=== PATIENT | female | born 1945 | race Asian ===

== ENCOUNTER 2023-01-02 10:15 | Outpatient (REF) | payer MEDICARE, MEDICAID, SELFPAY ==
[2023-01-02 13:14] LABS: Cholesterol 180 mg/dL; HDL Cholesterol 67 mg/dL; LDL Cholesterol Calculated 96 mg/dl; Triglycerides 85 mg/dL
[2023-01-02 13:30] LABS: Alanine Aminotransferase 17 U/L (0-31); Albumin Level 4.5 g/dL (3.5-5.0); Alkaline Phosphatase 90 U/L (39-117); Anion Gap 11 (12-20); Aspartate Amino Transferase 25 U/L (5-31); Bilirubin Total 0.7 mg/dL (0.0-1.0); Blood Urea Nitrogen 15 mg/dL (9-16); Calcium 10.1 mg/dL (8.4-10.2); Carbon Dioxide 30 mmol/L (22-29); Chloride 103 mmol/L (96-108); Estimated Glomerular Filt Rate > 60; Glucose Random 83 mg/dL (60-115); Sodium 140 mmol/L (135-145); TSH reflex Free T4 1.84 uIU/mL (0.32-4.0); Total Protein 7.8 g/dL (6.5-8.0)
[2023-01-02 14:54] LABS: Reflex LDLD? No
== END 2023-01-02 10:16 | disposition home or self-care (01) ==
LOC: HO.HHCL 10:15
PROVIDERS: Visit Provider Family Medicine
DX: R10.32 Left lower quadrant pain (principal); E78.5 Hyperlipidemia, unspecified; M85.80 Other specified disorders of bone density and structure, unspecified site; K59.00 Constipation, unspecified
CPT/HCPCS: 36415; 80053; 80061; 84443

== ENCOUNTER 2023-01-02 10:35 | Outpatient (REF) | payer MEDICARE, MEDICAID, SELFPAY ==
--- NOTE | ~2023-01-02 | XR_ITS ---
EXAMINATION: XR FINGER, RIGHT XR HAND, RIGHT CLINICAL INFORMATION: Finger pain, especially 4th digit for 6 months. COMPARISON: None. TECHNIQUE: Right finger 3 views. Right hand 3 views. FINDINGS: Right hand and right fingers: There is loss of PIP and DIP joint space all digits, worse DIP joint 4th and 5th digits. There is periarticular spurring and bony erosive changes and mild flexion deformity DIP joint 4th digit. Minimal loss of PIP joint space is also visualized involving the 2nd, 3rd and 4th digits. The carpometacarpal and intercarpal joint spaces are preserved. No acute fracture seen. XR/XR finger RT min 2V IMPRESSION: Degenerative osteoarthritic changes. Severe degenerative arthritic changes PIP and DIP joints worse in the 4th and 5th digits. There is mild flexion deformity DIP joint 4th digit. No acute fracture seen.
--- NOTE | ~2023-01-02 | XR_ITS ---
EXAMINATION: XR FINGER, RIGHT XR HAND, RIGHT CLINICAL INFORMATION: Finger pain, especially 4th digit for 6 months. COMPARISON: None. TECHNIQUE: Right finger 3 views. Right hand 3 views. FINDINGS: Right hand and right fingers: There is loss of PIP and DIP joint space all digits, worse DIP joint 4th and 5th digits. There is periarticular spurring and bony erosive changes and mild flexion deformity DIP joint 4th digit. Minimal loss of PIP joint space is also visualized involving the 2nd, 3rd and 4th digits. The carpometacarpal and intercarpal joint spaces are preserved. No acute fracture seen. XR/XR hand RT min 3V IMPRESSION: Degenerative osteoarthritic changes. Severe degenerative arthritic changes PIP and DIP joints worse in the 4th and 5th digits. There is mild flexion deformity DIP joint 4th digit. No acute fracture seen.
== END 2023-01-02 10:36 | disposition home or self-care (01) ==
LOC: HO.HHCX 10:35
PROVIDERS: Visit Provider Family Medicine
DX: M79.644 Pain in right finger(s) (principal)
CPT/HCPCS: 73130; 73140

== ENCOUNTER 2023-01-03 14:16 | Outpatient (REF) | payer MEDICARE, MEDICAID, SELFPAY | END 2023-01-03 14:17 | disposition home or self-care (01) | LOC: HO.HHCLNP 14:16 | PROVIDERS: Visit Provider Family Medicine | DX: R10.32 Left lower quadrant pain (principal) | CPT/HCPCS: 87338 ==

== ENCOUNTER 2023-02-27 09:17 | Outpatient (AMB) | payer MEDICARE, MEDICAID, SELFPAY ==
--- NOTE | 2023-02-27 09:25 | A.OFFVIS_ITS ---
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 Patient reports on and off numbness for a year which causes her a lot of pain. She states her numbness is worse at night, it wakes her up at night. 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 The patient reports she has numbness in the right index, ring, and little digits. She states the numbness has been present for a year, which causes her a lot of pain. She claims to have an increased numbness at night. She states the numbness will wake her up at night. She reports numbness in the index, ring, and little digits occasionally at night. She denies taking Tylenol or Ibuprofen. She states she is starting to have pain in the left hand. She presents in the office today with her . [facility] Social History (Updated 02/27/23 @ 09:29 by Ezio Zapata) Alcohol intake: never Patient Tobacco Use Status: Never used Tobacco Current occupational status: retired Current occupation: right hand dominant Review of Systems Const All systems reviewed & are unremarkable except as noted in HPI and below Physical Exam Vital Signs: BMI result Body Mass Index 21.5 Const General: cooperative and no acute distress Orientation/consciousness: patient oriented x3 Resp Effort & Inspection: normal respiratory effort and able to speak in complete sentences Cardio Peripheral pulses: Peripheral pulses 2+ throughout Skin General skin exam: no rashes or lesions noted Neuro General: patient oriented x3 Extrem Other: Right hand: Deformity noted at the DIP of the index, ring, and little digits with slight tenderness to palpation. No ecchymosis, erythema, or edema. Able to perform full finger flexion, extension, abduction, adduction, finger cross, okay sign, and thumbs up without deficit. Able to make a closed fist. Numbness and tingling along the ulnar nerve distribution of the index, ring, and little digits.. Capillary refill is brisk. Radial pulse intact. Assessment & Plan Assessment & Plan (1) Rheumatoid arthritis: Code(s): M06.9 - Rheumatoid arthritis, unspecified Qualifiers: Laterality: right Rheumatoid arthritis location: hand Rheumatoid factor presence: unspecified presence Qualified Code(s): M06.9 - Rheumatoid arthritis, unspecified (2) Carpal tunnel syndrome: Code(s): G56.00 - Carpal tunnel syndrome, unspecified upper limb Qualifiers: Laterality: right Qualified Code(s): G56.01 - Carpal tunnel syndrome, right upper limb Plan Ms. Munoz is a 77-year-old female who presents in the office today, as a new patient, for an evaluation of right hand pain. The patient reports she has numbness in the right index, ring, and little digits. She states the numbness has been present for a year, which causes her a lot of pain. She claims to have an increased numbness at night. She states the numbness will wake her up at night. She reports numbness in the index, ring, and little digits occasionally at night. She denies taking Tylenol or Ibuprofen. She states she is starting to have pain in the left hand. She presents in the office today with her . I discussed the role of cortisone injections in the office. We have agreed to defer at this time due to her pain not being severe. I recommended the patient to take OTC tylenol and ibuprofen. Should the OTC medications not give her relief she can call the office to schedule a cortisone injection in the DIP specifically the ring giner. This would need to be booked with Dr. Fitzgerald using the Fluro[employer]. I will send a referral to Rheumatology for further evaluation of possible rheumatoid arthritis. I will also place a referral for an EMG study for further evaluation of the numbness in the digits. Follow up will be after the EMG is obtained, or sooner if needed. X-rays of the right hand which were obtained while in the office today and were reviewed by me, Jenelle Mcgill PA-C, revealed arthritis located at the DIP of the index, ring, and little digits with possible rheumatoid arthritis. Also with pencil and cup deformity. Orders: Orders XR hand RT min 3V Today M79.643 - Pain in unspecified hand NE electromyogram (EMG) Today G56.00 - Carpal tunnel syndrome, unspecified upper limb Referrals Rheumatology Referral M06.9 - Rheumatoid arthritis, unspecified Patient Instructions: Scribed for Jenelle Mcgill PA-C by Nereida Bach medical assistant dermatology, on 02/27/2023 at 9:15 am, EST. Coding Level of Care Code New Pt Level 4 (96723) Diagnoses Rheumatoid arthritis involving right hand, unspecified whether rheumatoid factor present M06.9 Laterality: right Rheumatoid arthritis location: hand Rheumatoid factor presence: unspecified presence Carpal tunnel syndrome of right wrist G56.01 Laterality: right
[2023-02-27 09:29] VITALS: BMI 21.5
== END 2023-02-27 09:57 | disposition home or self-care (01) ==
LOC: HO.HOS 09:17
PROVIDERS: PCP Family Medicine; Visit Provider Physician Assistant
DX: G56.01 Carpal tunnel syndrome, right upper limb (principal); M06.9 Rheumatoid arthritis, unspecified
CPT/HCPCS: 99204

== ENCOUNTER 2023-02-27 11:21 | Outpatient (REF) | payer MEDICARE, MEDICAID, SELFPAY ==
--- NOTE | ~2023-02-27 | XR_ITS ---
EXAMINATION: XR HAND, RIGHT CLINICAL INFORMATION: Pain in unspecified hand. COMPARISON: 01/02/2023 TECHNIQUE: Right hand 4 views. FINDINGS: Advanced degenerative changes with joint space narrowing, periarticular spurring, bony erosive changes are severe in the 4th DIP joint with flexion deformity. Moderate degenerative changes with joint space narrowing in the remainder of the DIP joints. Minimal joint space narrowing 2nd, 3rd and 4th PIP joints. Mild degenerative changes 1st carpometacarpal joint with joint space narrowing and hypertrophic change. XR/XR hand RT min 3V IMPRESSION: 1. Advanced degenerative changes are severe in the 4th DIP joint and moderately severe in the 5th DIP joint. 2. No displaced fracture. Recommend follow up imaging in 10-14 days if fracture is suspected. 3. Severe degenerative arthritic changes PIP and DIP joints worse in the 4th and 5th digits. There is mild flexion deformity DIP joint 4th digit. No acute fracture seen. 4. Recommend follow up imaging in 10-14 days if fracture is suspected.
== END 2023-02-27 11:22 | disposition home or self-care (01) ==
LOC: HO.HOSX 11:21
PROVIDERS: Visit Provider Physician Assistant
DX: M79.641 Pain in right hand (principal); M06.9 Rheumatoid arthritis, unspecified; G56.01 Carpal tunnel syndrome, right upper limb
CPT/HCPCS: 73130

== ENCOUNTER 2023-04-12 10:31 | Outpatient (REF) | payer MEDICARE, MEDICAID, SELFPAY ==
--- NOTE | ~2023-04-12 | MM_ITS ---
EXAMINATION: BONE DENSITOMETRY CLINICAL INDICATION: Screening for osteoporosis. COMPARISON: This is the patient's baseline examination. TECHNIQUE: Using a Iqua DXA System (software version: 13.1) manufactured by [employer], dual-energy x-ray absorptiometry was performed of the lumbar spine and left hip. The images are of good technical quality. Summary results are attached. FINDINGS: LEFT FEMUR, NECK: BMD 0.739 g/cm2, Z-score 0.1, T-score -2.2, osteopenia. LEFT FEMUR, TOTAL: BMD 0.796 g/cm2, Z-score 0.4, T-score -1.7, osteopenia. AP SPINE L1-L4: BMD 0.901 g/cm2, Z-score -0.3, T-score -2.3, osteopenia. IDENTIFIED RISK FACTORS: Menopause. HISTORY OF FRACTURE: None listed. MEDICATIONS: Calcium, vitamin D. MM/XR DEXA axial skeleton IMPRESSION: 1. DIAGNOSIS: Osteopenia based on the lowest T-score value of -2.3 in the lumbar spine applying World Health Organization criteria. 2. 10-YEAR FRACTURE RISK PREDICTION, FRAX: Major osteoporotic fracture (clinical spine, forearm, hip or shoulder) 8.4%. Hip fracture 2.6%. 3. Treatment Recommendations: NOF guidelines recommend consideration for treatment in postmenopausal women and men age 50 and older presenting with the following: -A hip or vertebral (clinical or morphometric) fracture. -T-score less than or equal to -2.5 at the femoral neck or spine after appropriate evaluation to exclude secondary causes. -Low bone mass at the hip or spine and a 10-year fracture probability by FRAX of greater than or equal to 3% for hip fracture or greater than or equal to 20% for major osteoporotic fracture based on the [place] adapted WHO algorithm. 4. Other Recommendations: All treatment decisions require clinical judgment and consideration of individual patient factors, including patient preferences, comorbidities, previous drug use, risk factors not captured in the FRAX model (e.g. frailty, falls, vitamin D deficiency, increased bone turnover, interval significant decline in bone density) and possible under or overestimation of fracture risk by FRAX. Additional medical evaluation for secondary cause of low bone mineral density may be appropriate. FUTURE SCAN RECOMMENDATION: People with diagnosed cases of osteoporosis or at high risk for fracture should have regular bone mineral density tests. For patients eligible for Medicare, routine testing is allowed once every 2 years. The testing frequency can be increased to one year for patients who have rapidly progressing disease, those who are receiving or discontinuing medical therapy to restore bone mass, or have additional risk factors.
== END 2023-04-12 10:32 | disposition home or self-care (01) ==
LOC: HO.MAMMO 10:31
PROVIDERS: PCP Family Medicine; Visit Provider Family Medicine
DX: Z13.820 Encounter for screening for osteoporosis (principal); Z78.0 Asymptomatic menopausal state
CPT/HCPCS: 77080

== ENCOUNTER 2023-07-23 | Outpatient (REF) | payer MEDICARE, MEDICAID, SELFPAY ==
--- NOTE | ~2023-07-23 | XR_ITS ---
EXAMINATION: XR KNEE, LEFT CLINICAL INFORMATION: Left knee swelling. Patient states she had 2 left knee injury/tear, pain since then. COMPARISON: None available. TECHNIQUE: Four views of the left knee. FINDINGS: No fracture. Small joint effusion.. Alignment is anatomic. Joint spaces are maintained. No abnormal soft tissue calcification. There is mild increased density in Hoffa's fat pad. Quadriceps enthesopathy is noted. XR/XR knee LT 4V IMPRESSION: 1. No acute bony abnormality. 2. Small joint effusion.
== END 2023-07-23 00:01 | disposition home or self-care (01) ==
LOC: HO.HHCX
PROVIDERS: PCP Family Medicine; Visit Provider Family Medicine
DX: M25.562 Pain in left knee (principal); M25.472 Effusion, left ankle; G89.29 Other chronic pain
CPT/HCPCS: 73564

== ENCOUNTER 2023-09-18 18:21 | Outpatient (REF) | payer MEDICARE, MEDICAID, SELFPAY ==
[2023-09-20 16:48] LABS: C. trachomatis RNA TMA NOT DETECTED (NOT DETECTED); Candida glabrata RNA NOT DETECTED (NOT DETECTED); Candida species RNA NOT DETECTED (NOT DETECTED); N. gonorrhoeae RNA TMA NOT DETECTED (NOT DETECTED); Trichomonas vaginalis RNA NOT DETECTED (NOT DETECTED)
== END 2023-09-18 18:22 | disposition home or self-care (01) ==
LOC: HO.HHCLNP 18:21
PROVIDERS: Visit Provider Nurse Practitioner Family
DX: N89.8 Other specified noninflammatory disorders of vagina (principal); R30.0 Dysuria
CPT/HCPCS: 36415; 81513; 87086; 87481; 87491; 87591; 87661

== ENCOUNTER 2023-09-21 14:33 | Outpatient (REF) | payer MEDICARE, MEDICAID, SELFPAY ==
[2023-09-22 04:26] LABS: HIV AB/AG Nonreactive (Nonreactive); HIV Num 1 0.09 S/CO (0.00-0.99); ~HepC Num1 0.12 S/CO (0.00-0.79); ~Hepatitis C Antibody Nonreactive (Nonreactive)
[2023-09-24 11:53] LABS: RPR Rapid Plasma Reagin NON-REACTIVE (NON-REACTIVE)
== END 2023-09-21 14:34 | disposition home or self-care (01) ==
LOC: HO.HHCL 14:33
PROVIDERS: Visit Provider Internal Medicine Geriatric Medicine
DX: Z11.4 Encounter for screening for human immunodeficiency virus [HIV] (principal); A60.04 Herpesviral vulvovaginitis; N90.89 Other specified noninflammatory disorders of vulva and perineum; Z20.2 Contact with and (suspected) exposure to infections with a predominantly sexual mode of transmission
CPT/HCPCS: 36415; 86592; 86803; 87255; 87389

== ENCOUNTER 2024-04-17 10:37 | Outpatient (REF) | payer MEDICARE, MEDICAID, SELFPAY ==
--- NOTE | ~2024-04-17 | XR_ITS ---
EXAMINATION: XR SHOULDER, LEFT. XR ELBOW, LEFT. CLINICAL INFORMATION: Left shoulder and arm pain COMPARISON: None. TECHNIQUE: 4 views of the left elbow. 3 views of the left shoulder. FINDINGS: Left elbow: Normal alignment. No fracture. No joint effusion. Left shoulder: No fracture or malalignment. Mild acromioclavicular osteoarthritis. Laterally downsloping acromion. XR/XR shoulder LT min 2V IMPRESSION: LEFT ELBOW: Normal. LEFT SHOULDER: No fracture. Mild acromioclavicular osteoarthritis. Electronically signed by: Quinn Buenrostro MD 04/17/2024 02:34 PM NAYA
--- NOTE | ~2024-04-17 | XR_ITS ---
EXAMINATION: XR SHOULDER, LEFT. XR ELBOW, LEFT. CLINICAL INFORMATION: Left shoulder and arm pain COMPARISON: None. TECHNIQUE: 4 views of the left elbow. 3 views of the left shoulder. FINDINGS: Left elbow: Normal alignment. No fracture. No joint effusion. Left shoulder: No fracture or malalignment. Mild acromioclavicular osteoarthritis. Laterally downsloping acromion. XR/XR elbow LT min 3V IMPRESSION: LEFT ELBOW: Normal. LEFT SHOULDER: No fracture. Mild acromioclavicular osteoarthritis. Electronically signed by: Quinn Buenrostro MD 04/17/2024 02:34 PM NAYA
== END 2024-04-17 10:38 | disposition home or self-care (01) ==
LOC: HO.HHCX 10:37
PROVIDERS: Visit Provider Family Medicine
DX: M25.512 Pain in left shoulder (principal); M25.522 Pain in left elbow
CPT/HCPCS: 73030; 73080

== ENCOUNTER 2024-04-17 10:55 | Outpatient (REF) | payer MEDICAID, SELFPAY ==
[2024-04-17 13:20] LABS: MANUAL DIFF FLAG NO
[2024-04-17 13:28] LABS: Appearance Urine Clear; Color Urine Yellow; Glucose Urine UA Negative (Negative); Leukocyte Esterase Urine Negative (Negative); Nitrite Urine Negative (Negative); PH 6.5 (5.0-9.0); Specific Gravity - Urine <= 1.005 (1.005-1.025); Urine Blood Negative (Negative); Urine Ketones Trace mg/dL (Negative); Urine Protein Negative (Neg-Trace)
[2024-04-17 13:36] LABS: Basophils Absolute Auto 0.1 X10*3/uL (0.0-0.2); Basophils Percent Auto 1.2 % (0-2); Eosinophils Absolute Auto 0.1 X10*3/uL (0.0-0.4); Hematocrit 38.1 % (37.0-47.0); Hemoglobin 12.6 g/dl (12.0-16.0); Imm Gran Abs Auto 0.02 X10*3/uL (0.00-0.03); Imm Gran Pct Auto 0.4 % (0.0-0.4); Lymphocytes Absolute Auto 1.2 X10*3/uL (1.2-4.9); Lymphocytes Percent Auto 24.1 % (20-40); Mean Corpuscular HGB Conc 33.1 g/dl (31.0-35.0); Mean Corpuscular Hemoglobin 29.6 pg (27.0-33.0); Mean Corpuscular Volume 89.6 fL (80.0-98.0); Mean Platelet Volume 10.9 fL (9.4-12.3); Monocytes Absolute Auto 0.3 X10*3/uL (0.1-1.2); Monocytes Percent Auto 5.8 % (2-11); Neutrophils Absolute Auto 3.3 x10*3/uL (2.0-8.3); Neutrophils Percent Auto 66.5 % (45-73); Platelet Count 237 X10*3/uL (160-400); Red Blood Count 4.25 X10*6/uL (4.20-5.50); Red Cell Distribution Width 13.4 % (11.0-16.0)
[2024-04-17 13:40] LABS: Bacteria Urine None Seen (None Seen); Hyaline Casts Urine 0-2 /LPF (0-2); RBC Urine 0-2 /HPF (0-2); Squamous Epithelial Cell Urine 0-2 /HPF (0-2); WBC Urine 0-5 /HPF (0-5)
[2024-04-17 14:03] LABS: Estimated Average Glucose 108 mg/dL; Hemoglobin A1C 121.7938 umol/L; Hemoglobin A1c % 5.4 % (<6.0); Total Hemoglobin (HGBA1C) 3401.4343 umol/L
[2024-04-17 14:11] LABS: Alanine Aminotransferase 21 U/L (0-31); Albumin Level 4.4 g/dL (3.5-5.0); Alkaline Phosphatase 89 U/L (39-117); Anion Gap 12 (12-20); Aspartate Amino Transferase 31 U/L (5-31); Bilirubin Direct 0.3 mg/dL (0.0-0.5); Bilirubin Total 0.7 mg/dL (0.0-1.0); Blood Urea Nitrogen 15 mg/dL (9-16); C Reactive Protein 2.01 mg/dL (< or = 0.50); Calcium 10.4 mg/dL (8.4-10.2); Carbon Dioxide 27 mmol/L (22-29); Chloride 102 mmol/L (96-108); Cholesterol 329 mg/dL (<200); Estimated Glomerular Filt Rate > 60; Glucose Random 95 mg/dL (60-115); HDL Cholesterol 64 mg/dL (>40); LDL Cholesterol Calculated 244 mg/dL (<100); Potassium 3.8 mmol/L (3.3-5.1); Sodium 137 mmol/L (135-145); TSH reflex Free T4 1.69 uIU/mL (0.32-4.0); Triglycerides 109 mg/dL (<150); Uric Acid 3.9 mg/dL (2.4-5.7)
[2024-04-17 14:16] LABS: Erythrocyte Sedimentation Rate 69 MM/HR (0-20)
[2024-04-17 14:33] LABS: Reflex LDLD? No
== END 2024-04-17 10:56 | disposition home or self-care (01) ==
LOC: HO.HHCL 10:55
PROVIDERS: Visit Provider Family Medicine
DX: R63.4 Abnormal weight loss (principal); M25.512 Pain in left shoulder; M25.522 Pain in left elbow; R82.998 Other abnormal findings in urine; E78.5 Hyperlipidemia, unspecified; R73.03 Prediabetes
CPT/HCPCS: 36415; 80048; 80061; 80076; 81001; 82550; 83036; 84443; 84550; 85025; 85652; 86140

== ENCOUNTER 2024-07-15 10:06 | Outpatient (REF) | payer MEDICAID, SELFPAY ==
--- OUTSIDE RECORDS SUMMARY | 2024-07-15 10:50 | XMS_ITS | Encounter Summary ---
Author Organization [employer] Address [address] [facility] [facility] [address] [place] [address] Care Team Providers Care Rail Car Welder Name Role Phone Darlin Tellez MD Primary Care Provider [phone] Reason for Visit * Reason Onset Date Comments Nurse Triage 04/17/2023 Encounter Details Date Type Department Care Team ([facility] st Contact Info) Description 04/17/2023 Telephone [facility] [address], [place] [phone] Darlin Tellez MD [address] [place], [place] [phone] Nurse Triage Social History Tobacco Use Types Packs/Day Years Used Date Smoking Tobacco: Never Passive Smoke Exposure: Never Smokeless Tobacco: Never Depression Answer Date Recorded Patient Health Questionnaire-9 Score 0 01/02/2023 Housing Stability Answer Date Recorded What is your housing situation today? I have krissy sher 04/02/[address] you li ve. Do you have problems with any of the following? None of the above 04/02/2023 Food Insecurity Answer Date Recorded Within the past 12 months, y ou worried that your food would run out before you got money to buy more: Never True 04/02/2023 Within the past 12 months,th e food you bought just didn't last and you didn't have enough money to get more: Never True Transportation Answer Date Recorded In the past 12 months, has l ack of transportation kept you from medical appts, meetings, work or from getting things needed for daily living? No 04/02/2023 Utilities Answer Date Recorded In the past 12 months, has t he electric, gas, oil or water QA on Request threatened to shut off services in your home? No 04/02/2023 Depression Answer Date Recorded Patient Health Questionnaire-2 Score 0 01/02/2023 Comments Unknown Sex and Gender Information Value Date Recorded Sex Assigned at Female 04/10/2022 10:24 AM EDT Legal Sex Female 10:24 AM EDT Gender Identity Female 04/10/2022 10:24 AM EDT Sexual Orientation Choose not to disclose 2021 10:24 AM EDT documented as of this encounter Miscellaneous Notes * Telephone Encounter - Annamarie Arguelles - 04/17/2023 9:58 AM EST Symptom: Finger Pain - Not From Injury Outcome: Schedule an urgent appointment (within 1 hour) or talk to a nurse or provider soon Reason: Severe pain now The caller accepted this outcome documented in this encounter Plan of Treatment Upcoming Encounters Date Type Department Care Team (Late st Contact Info) Description 11/19/2024 10:00 AM EDT Office Visit [facility] ADULT DENTAL [address] [place] [address] Melissa Vega documented as of this encounter Visit Diagnoses Not on filedocumented in this encounter Additional Health Concerns Assessment Noted Time PHQ-9 Depression Total Score: 0 01/03/20 23 9:26 AM EDT documented as of this encounter Care Teams Rail Car Welder Relationship Specialty Start Date End Date Darlin Tellez MD [address] [place] [address] PCP - General Family Medicine 01/28/19 documented as of this encounter
--- OUTSIDE RECORDS SUMMARY | 2024-07-15 10:50 | XMS_ITS | Encounter Summary ---
Author Organization [employer] Address [address] [facility] [address] [place] [address] Care Team Providers Care Appellate Law Clerk Name Role Phone Darlin Tellez MD Primary Care Provider [phone] Reason for Visit * Reason Onset Date Comments Appointment Request 01/23/2024 Encounter Details Date Type Department Care Team ([facility] st Contact Info) Description 01/23/2024 Telephone [facility] [address] [place], [place] [phone] Darlin Tellez MD [address] [place], [place] [phone] Appointment Request Social History Tobacco Use Types Packs/Day Years [...] t he electric, gas, oil or water company threatened to shut off services in your [...] * Telephone Encounter - Annamarie Arguelles - 01/23/2024 10:56 AM EDT Tc from pt requesting appt with PCP, no availability at this time. documented in this encounter Plan of Treatment Upcoming Encounters Date Type Department Care Team (Late st Contact Info) Description 11/19/2024 10:00 AM EDT Office Visit [facility] [address] [place] [address] Melissa Vega documented as of this encounter Visit Diagnoses Not on filedocumented in this encounter Additional Health Concerns Assessment Noted Time PHQ-9 Depression Total Score: 0 01/03/20 23 9:26 AM EDT documented as of this encounter Care Teams Appellate Law Clerk Relationship Specialty Start Date End Date Darlin Tellez MD [address] [place] [address] PCP - General Family Medicine 01/28/19 documented as of this encounter
--- OUTSIDE RECORDS SUMMARY | 2024-07-15 10:50 | XMS_ITS | Encounter Summary ---
Author Organization [employer] Address [address] [facility] [address] [place] [address] Care Team Providers Care Pharmacy Technician Infusion Name Role Phone Darlin Tellez MD Primary Care Provider [phone] Encounter Details Date Type Department Care Team (Late st Contact Info) Description 04/17/2023 Orders Only [facility] MED[facility]INE [address] [place], [place] [phone] Darlin Tellez MD [address] [place], [place] [phone] Social History Tobacco Use Types Packs/Day Years Used Date Smoking Tobacco: Never Passive Smoke Exposure: Never Smokeless Tobacco: Never Depression Answer Date Recorded Patient Health Questionnaire-9 Score 0 01/02/2023 Housing Stability Answer Date Recorded What is your housing situation today? I have krissyclaudia sher 04/02/[address] you [...] AM EDT documented as of this encounter Plan of Treatment Upcoming Encounters Date Type Department Care Team (Late st Contact Info) Description 11/19/2024 10:00 AM EDT Office Visit [facility] ADULT DENTAL [address] [place] [address] Melissa Vega documented as of this encounter Visit Diagnoses Not on filedocumented in this encounter Additional Health Concerns Assessment Noted Time PHQ-9 Depression Total Score: 0 01/03/20 23 9:26 AM EDT documented as of this encounter Care Teams Pharmacy Technician Infusion Relationship Specialty Start Date End Date Darlin Tellez MD [address] [place] [address] PCP - General Family Medicine 01/28/19 documented as of this encounter
--- OUTSIDE RECORDS SUMMARY | 2024-07-15 10:50 | XMS_ITS | Encounter Summary ---
Author Organization [employer] Address [address] [facility] [address] [place] [address] Care Team Providers Care Wafer Polishing Worker Name Role Phone Darlin Tellez MD Primary Care Provider [phone] Reason for Referral * Imaging (Routine) - Closed Specialty Diagnoses / Procedures Referred By Mesha casey Referred To Contact Radiology Diagnoses Screening for osteoporosis Postartificial menopausal syndrome Other specified disorders of bone density and structure, right hand Procedures BD DEXA Axial Darlin Tellez MD [address] [place] [address] Phone: tel: fax: [address] Phone: tel: fax: Referral ID Status Reason Start Date Expiration Date Visits Re quested Visits Authorized [id number] Closed 03/21/2023 03/20/2024 1 1 Encounter Details Date Type Department Care Team (Late st Contact Info) Description 01/05/2023 Orders Only [facility] MEDICINE [address] [place], [place] [phone] Darlin Tellez MD [address] [place], [place] [phone] Postartificial menopausal syndrome (Primary Dx); Screening for osteoporosis; Other specified disorders of bone density and structure, right hand Social History Tobacco Use Types Packs/Day Years Used Date Smoking Tobacco: Never Passive Smoke Exposure: Never Smokeless Tobacco: Never Depression Answer Date Recorded Patient Health Questionnaire-9 Score 0 01/02/2023 Depression Answer Date Recorded Patient Health Questionnaire-2 [...] Description 11/19/2024 10:00 AM EDT Office Visit [facility] ADULT DENTAL [address] [place] [address] Melissa Vega Scheduled Orders Name Type Priority Associated Diagnoses Orde r Schedule BD DEXA Axial Imaging Routine Screening for osteoporosis Postartificial menopausal syndrome Other specified disorders of bone density and structure, right hand Expected: 03/21/2023 (Approximate), Expires: 01/06/2024 documented as of this encounter Visit Diagnoses Diagnosis Postartificial menopausal syndrome- Primary Symptomatic states associated with artificial menopause Screening for osteoporosis Special screening for osteoporosis Other specified disorders of bone density and structure, right hand documented in this encounter Additional Health Concerns Assessment Noted Time PHQ-9 Depression Total Score: 0 01/03/20 23 9:26 AM EDT documented as of this encounter Care Teams Wafer Polishing Worker Relationship Specialty Start Date End Date Darlin Tellez MD [address] [place] [address] PCP - General Family Medicine 01/28/19 documented as of this encounter
--- OUTSIDE RECORDS SUMMARY | 2024-07-15 10:50 | XMS_ITS | Continuity of Care Document ---
Author Organization [facility] Address [address] [place] [address]- Care Team Providers Care Mixer Helper Name Role Phone Darlin Tellez MD Primary Care Physician Encounter [facility] Date(s): 05/15/24 - 06/14/[address] [facility] [address] [place], [place] [address] Attending Physician: Landon Foley Admitting Physician: Landon Foley Referring Physician: Admtr ArSkyler Encounter Type: Triage Allergies, Adverse Reactions, Alerts Substance Criticality Severity Reaction Reaction Severity Status Latex Active Immunizations Given and Recorded Vaccine Date Status Refusal Reason Pneumococcal Vacc (oldterm) 01/28/15 Recorded tetanus/diphtheria/pertussis, acel(Tdap) 10/02/08 Recorded Medications Multivitamin By Mouth, Daily, 0 Refills, Maintenance, 11/02/15 9:21:35 AM EDT Start Date: 11/02/15 Status: Ordered Repeat number: 1 Problem List Condition Confirmation Course Effective Dates Status Health St atus Informant Hypercholesteremia Confirmed Active Osteopenia Confirmed Active Social History Social History Type Response Smoking Status Never smoker entered on: 12/24/14 Sex Sex Representation Female (finding) Patient Care team information Care Team Personnel Name: Darlin Tellez MD Position: S Outreach Member Role: PCP Address: [address] [place], [place] [address] Telecom: Care Team Related Persons Name: DASHAWNAISHA TejadaM Insurance Providers Guarantor name: CAYLA TAMEZ Health Plan Information #: 1 Payer: MEDICARE PART B OUTPT Member Number: NA Policy Number: NA Group Number: NA Health Plan Information #: 2 Payer: [facility] Member Number: NA Policy Number: NA Group Number: NA
--- OUTSIDE RECORDS SUMMARY | 2024-07-15 10:50 | XMS_ITS | Data Portability ---
Author Organization LEATHA Milan s, [address] Address [address] [place] [address] Care Team Providers Care Flatbed Stitcher Name Role Phone DANIELA SANTOS Primary Care Provider Assessment No assessment recorded. Plan of Treatment Reminders Order Date Submit Date Provider Last Modified By Organization Details Last Modified Time Details Appointments None recorded. Lab None recorded. Referral dermatologi st referral 2022 023 [facility] 3 [facility], [address], [place], [address], 20:11:22 Procedures None recorded. Surgeries None recorded. Imaging None recorded. Medication Orders benzonatate 100 mg capsule 2022 023 [facility], [address] [place], [address], 20:05:50 Patient TargetsNo targets recorded. Patient Instructions Encounter Date Encounter Id Patient Instructions Last Modified By Organization Details Last Modified Time 04/17/2023 [id number] cough: care instructions [email or web address] Not available 04/17/2023 20:04:53 Reason for Referral Management Department Chair Referral for H and wart Referring Physician: Bella Moreno, Urgent Care, Encounter Date: 04/17/2023 Problems Name Problem SNOMED Code Status Onset Date Resolution Date Notes Provider Name and Address Organization Details Recorded Time Hypercholestero lemia 80264905 Active [facility]AT[facility] 19:01:33 Problem Notes None recorded. Procedures Surgical History Date Name Laterality Status Provider Name and Address Organization Details Recorded Time 3 procedure on eye completed VOLODYMYR Benitez [facility] 04/17/2023 19:02:28 Imaging Results None recorded. Procedure Notes None recorded. Medical Equipment None Reported. Allergies No known drug allergies Medications Name Sig Start Date Stop Date Status Note LastModified by Organization Details LastModified Time atorvastati n 20 mg tablet TAKE 1 TABLET BY MOUTH EVERY DAY AT BEDTIME active Not Available Not Available No t Available cetirizine 10 mg tablet TAKE 1 TABLET BY MOUTH ONCE DAILY 04/17 completed Not Available Not Available Not Available valacyclovi r 1 gram tablet TAKE 1 TABLET BY MOUTH EVERY 12 HOURS FOR 7 DAYS 04/17 completed Not Available Not Available Not Available alendronate 70 mg tablet 04/17 completed Not Available Not Available Not Available prednisolon e acetate 1 % eye drops,suspe nsion INSTILL 1 DROP INTO EACH EYE 4 TIMES DAILY 04/17 completed Not Available Not Available Not Available benzonatate 100 mg capsule Take 1 capsule 3 times a day by oral route as needed for 10 days. 2022 active Not Available Not Available Not Avai lable erythromyci n 5 mg/gram (0.5 %) eye ointment APPLY 0.5 INCHES OF OINTMENT INTO EACH EYE THREE TIMES DAILY 04/17 completed Not Available Not Available Not Available clotrimazol e-betametha sone 1 %-0.05 % topical cream APPLY 2G OF CREAM TOPICALLY TO AFFECTED AREA EVERY 12 HOURS 04/17 completed Not Available Not Available Not Available Procto-Med HC 2.5 % topical cream perineal applicator APPLY THIN LAYER TO THE AFFECTED AREA 2-4 TIMES DAILY 04/17 completed Not Available Not Available Not Available Vitals Date Recorded Body height Body mass index (BMI) Body weight Respiratory rate Pain severity - 0-10 verbal numeric rating [Score] - Reported Oxygen saturation Oxygen saturation in Arterial blood by Pulse oximetry Heart rate Body temperature Systolic blood pressure Diastolic blood pressure Provider Name and Address Organization Details Last Updated DateTime 3 165.1 cm 20 kg/m2 13864.0 8 g 18 /min 8 99 % 99 % 83 /min 97.6 [degF] 152 mm[Hg] 82 mm[Hg] VOLODYMYR DEPINTO [place] - [facility] 19:04:33 Social History Question Answer Notes LastModified by Organizat ion Details LastModified Time Tobacco Smoking Status Never Smoker VOLODYMYR CASELEATHA Perdomo - [facility] 04/17/2023 19:01:48 What Is Your Level Of Alcohol Consumption? None Information not available 04/17/2023 Have You Had A Flu Shot This Season? Yes Information not available 04/17/2023 If No, Would You Like A Flu Shot Today? A/P Information not available 04/17/2023 Do You Use Any Illicit Or Recreational Drugs? No Information not available 04/17/2023 Have You Recently Traveled Abroad? No Information not available 04/17/2023 Do You Or Have You Ever Used Any Other Forms Of Tobacco Or Nicotine? No Information not available 04/17/2023 Sex: Unknown Functional Status None recorded. Mental Status None recorded. Family History Nothing Reported. Medical History No medical history recorded. Gynecological History Statement/Question Response Date of LMP LMP N/A Obstetrics History GPAL:G 0 P 0 0 0 0 Past Encounters Encounter ID Performer Location Encounter Start Date Encounter Closed Date Diagnosis/Indication Diagnosis SNOMED-CT Code Diagnosis ICD10 Code Diagnosis Note [id number] [address] [place] [address] 03/23/2018 11:50:28 03/23/2018 13:03:05 [id number] [address] [facility] [address] [place] [address] 01/08/2022 13:49:42 01/08/2022 16:10:36 [id number] Bella Moreno NP [address] [place] [address] 04/17/2023 18:41:29 04/17/2023 20:11:22 Acute bronchitis 70418851 J20.9 How can you care for yourself at home? Drink lots of water and other fluids. This helps thin the mucus and soothes a dry or sore throat. Honey or lemon juice in hot water or tea may ease a dry cough. Take cough medicine as directed by your doctor. Prop up your head on pillows to help you breathe and ease a dry cough. Try cough drops or hard candy to soothe a dry or sore throat. Do not smoke. Avoid secondhand smoke. If you need help quitting, talk to your doctor about stop-smoki ng programs and medicines. These can increase your chances of quitting for good. When should you call for help? Call anytime you think you may need emergency care. For example, call if: You have severe trouble breathing. Call your doctor now or seek immediate medical care if: You cough up blood. You have new or worse trouble breathing. You have a new or higher fever. You have a new rash. Annalisa macario [id number] B07. 8 Health Concerns Section Related Observation LastModified by Organization Detai ls LastModified Time None Recorded Concern Status LastModified by Organization Details LastModified Time None Recorded Advance Directives Directive None Recorded Payers Encounter Date Sequence Insurance Name Policy Number Policy Gonzalez Covered Member ID Gonzalez Member ID Guarantor Name 01/08/2022 1 [place] [employer] [place] [id number] [employer] [place] 01/08/2022 2 [place] [facility] [place] [id number] [employer] [place] 04/17/2023 1 [place] [facility] GOVERNMENT SERVICES [place] [id number] [employer] [place] 04/17/2023 2 [place] [facility] [place] [id number] [employer] [place] Notes Date Note Type Note Provider Name and Address Organization Details Recorded Time 3 text/html CoughReported bypatient.source of patient informationInformation obtained from patient; Patient arrived at Urgent Care ambulatory Quality:dry; symptoms worse with lying down Severity:moderate Duration:30 days Timing:gradual Context:family members ill with similar symptoms; Patient denies vaping; non-smoker Modifying Factors:at night Associated Symptoms:no fever; no chills; no chest pain; no heartburn; no nausea; no vomiting; no edema; no agitation; no wheezing; no post nasal drip cough x 3 wk. Also has bump on left 3rd finger x 1 month. Used compound W 1 wk ago, no improvement Bella Moreno, RANDI [address] [place], [address], [place] - [facility] 04/17/2023 20:09:12 OBGyn Episode No OBEpisode recorded.
--- OUTSIDE RECORDS SUMMARY | 2024-07-15 10:50 | XMS_ITS | Continuity of Care Document ---
Author Organization [facility] Address [address] [place] [address]- [facility] Name Relationship Address Phone ERROL TAMEZ Other Unknown Unavailable DASHAWN, LETYFONG Personal Relationship Unknown Unavai lable DASHAWN, SOW-WEBBER Personal Relationship Unknown Unava ilable Care Team Providers Care Production Technician Name Role Phone Darlin Tellez MD Primary Care Physician Encounter [facility] Date(s): 04/09/24 - 06/14/24 [facility] [address] [place], [place] [address] [[email or web address]] Attending Physician: Ibrahima Boothe MD Referring Physician: Catarino Christianson NP Encounter Type: Pre Office Visit Allergies, Adverse Reactions, Alerts Substance Criticality Severity Reaction Reaction Severity Status Latex Active Immunizations Given and Recorded Vaccine Date Status Refusal Reason Pneumococcal Vacc (oldterm) 01/28/15 Recorded tetanus/diphtheria/pertussis, acel(Tdap) 10/02/08 Recorded Medications Multivitamin By Mouth, Daily, 0 Refills, Maintenance, 11/02/15 9:21:35 AM EDT Start Date: 11/02/15 Status: Ordered Repeat number: 1 Problem List Condition Confirmation Course Effective Dates Status Health atus Informant Hypercholesteremia Confirmed Active Osteopenia Confirmed Active Social History Social History Type Response Smoking Status Never smoker entered on: 12/24/14 Sex Sex Representation Female (finding) Patient Care team information Care Team Personnel Name: Darlin Tellez MD Position: S Outreach Member Role: PCP Address: [address] [place], [place] [address] [[email or web address]] Telecom: Care Team Related Persons Name: DASHAWN, AISHAM Insurance Providers Guarantor name: CAYLA TAMEZ Health Plan Information #: 1 Payer: MEDICARE PART B OUTPT Member Number: [id number] Policy Number: DANTE Group Number: DANTE Health Plan Information #: 2 Payer: [facility] Member Number: [id number] Policy Number: DANTE Group Number: [id number]
--- OUTSIDE RECORDS SUMMARY | 2024-07-15 10:51 | XMS_ITS | Encounter Summary ---
Author Organization [employer] Address [address] [place] [address] Care Team Providers Care Manipulative Therapy Specialist Name Role Phone Darlin Tellez MD Primary Care Provider [phone] Encounter Details Date Type Department Care Team (Latest Contact Info) Description 07/15/2024 Travel Social History Tobacco Use Types Packs/Day Years Used Date Smoking Tobacco: Never Passive Smoke Exposure: Never Smokeless Tobacco: Never Depression Answer Date Recorded Patient Health Questionnaire-9 Score 0 07/15/2024 Patient Health Questionnaire-9 Score 0 07/15/2024 Last PHQ-9: Questionnaire Data Not on file 0 07/15/2024 Housing Stability Answer Date Recorded What is your housing situation today? I have krissy sher 07/15/[address] you li ve. Do you have problems with any of the following? None of the above 07/15/2024 Food Insecurity Answer Date Recorded Within the past 12 months, y ou worried that your food would run out before you got money to buy more: Never True 04/17/2024 Within the past 12 months,th e food you bought just didn't last and you didn't have enough money to get more: Never True 12/2023 Transportation Answer Date Recorded In the past 12 months, has l ack of transportation kept you from medical appts, meetings, work or from getting things needed for daily living? No 04/17/2024 Utilities Answer Date Recorded In the past 12 months, has t he electric, gas, oil or water company threatened to shut off services in your home? No 04/17/2024 Depression Answer Date Recorded Patient Health Questionnaire-2 Score 0 07/15/2024 Internet Access Answer Date Recorded Internet Access Q1 Yes 04/17/2024 Internet Access Q2 Not on file 04/17/2024 Comments No Sex and Gender Information Value Date Recorded [...] Description 11/19/2024 10:00 AM EDT Office Visit [facility] [address] [place] [address] Melissa Vega documented as of this encounter Visit Diagnoses Not on filedocumented in this encounter Additional Health Concerns Assessment Noted Time PHQ-9 Depression Total Score: 0 07/15/19 25 9:20 AM EST documented as of this encounter Care Teams Manipulative Therapy Specialist Relationship Specialty Start Date End Date Darlin Tellez MD [address] [place] [address] PCP - General Family Medicine 01/28/19 documented as of this encounter
--- OUTSIDE RECORDS SUMMARY | 2024-07-15 10:51 | XMS_ITS | Encounter Summary ---
Author Organization [employer] Address [address] [facility] [address] [place] [address] Care Team Providers Care Type Copyist Name Role Phone Darlin Tellez MD Primary Care Provider [phone] Encounter Details Date Type Department Care Team (Latest Contact Info) Description 07/15/2024 9:15 AM EST Office Visit [facility] [address] [place] [phone] Darlin Tellez MD [address] [place], [place] [phone] Osteopenia, unspecified location (Primary Dx); Primary osteoarthritis of both hands; Dyslipidemia; Herpes simplex; Abdominal discomfort; Elevated erythrocyte sedimentation rate Social History Tobacco Use Types Packs/Day Years [...] AM EDT documented as of this encounter Last Filed Vital Signs Vital Sign Reading Time Taken Comments Blood Pressure 128/70 07/15/2024 9:21 AM EST Pulse 84 07/15/2024 9:21 AM EST Temperature 36.2 ??C (97.1 ??F) 07/15/2024 9:21 AM ES T Respiratory Rate 20 07/15/2024 9:21 AM EST Oxygen Saturation 99% 07/15/2024 9:21 AM EST Inhaled Oxygen Concentration - - Weight 56.7 kg (125 lb 1.6 oz) 07/15/2024 9:21 A M EST Height 164.5 cm (5' 4.76 ) 07/15/2024 9:21 AM ES T Body Mass Index 20.97 07/15/2024 9:21 AM EST documented in this encounter Miscellaneous Notes * Assessment & Plan Note - Ynes Hightower MA - 07/15/2024 10:42 AM EST Associated Problem(s): Elevated erythrocyte sedimentation rate - Ordered Sed Rate by Ami Tate 07/15/24 - Ordered C-reactive Protein 07/15/24 * Assessment & Plan Note - Ynes Hightower MA - 07/15/2024 10:41 AM EST Associated Problem(s): Abdominal discomfort - Ordered Lipase 07/15/24 - Ordered Basic Metabolic Panel 07/15/24 - Ordered Lipid Panel with Reflex to Direct LDL 07/15/24 - Ordered Hepatic Function Panel 07/15/24 - Ordered Helicobacter pylori Antigen, EIA, Stool 07/15/24 - Ordered CBC auto differential 07/15/24 * Assessment & Plan Note - Ynes Hightower MA - 07/15/2024 10:33 AM EST Associated Problem(s): 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 in 1 year - will start suppressive therapy with valacyclovir 500 mg daily * Assessment & Plan Note - Ynes Hightower MA - 07/15/2024 10:33 AM EST Associated Problem(s): Osteoarthritis of both hands - seen by orthopedist - recommended symptomatic treatment - Had surgery done on her left finger * Assessment & Plan Note - Ynes Hightower MA - 07/15/2024 9:19 AM ESTAssociated Problem(s): Dyslipidemia - lipid profile 01/03/23 total cholesterol 180; triglyceride 85; HDL 67; LDL 96 - continue working on lifestyle modification - previously on atorvastatin 20 mg at bedtime, patient discontinued due to pain - Ordered Lipid Panel with Reflex to Direct LDL 07/15/24 * Assessment & Plan Note - Ynes Hightower MA - 07/15/2024 9:17 AM ESTAssociated Problem(s): Osteopenia - most recent DEXA on 04/12/23 The lowest T-score -2.3 - bisphosphonate 70 mg weekly since Apr 2023, patient self-discontinued due to pain - continue weight-bearing exercise - maintain adequate Calcium and vitamin D intake - fall precaution - recheck DEXA in 2-3 years documented in this encounter Plan of Treatment Upcoming Encounters Date Type Department Care Team (Late st Contact Info) Description 11/19/2024 10:00 AM EDT Office Visit [facility] [address] [place] [address] Melissa Vega Scheduled Orders Name Type Priority Associated Diagnoses Orde r Schedule Lipase Lab Routine Abdominal discomfort Expected: 07/15/2024, Expires: 07/15/2025 Basic Metabolic Panel Lab Routine Abdominal discomfort Expected: 07/15/2024 (Approximate), Expires: 07/15/2025 Lipid Panel with Reflex to Direct LDL Lab Routine Dyslipidemia Abdominal discomfort Expected: 07/15/2024 (Approximate), Expires: 07/15/2025 Hepatic Function Panel Lab Routine Abdominal discomfort Expected: 07/15/2024 (Approximate), Expires: 07/15/2025 Helicobacter pylori??Antigen, EIA, Stool Lab Routine Abdominal discomfort Expected: 07/15/2024 (Approximate), Expires: 07/15/2025 Sed Rate by Modified W[place]gren Lab Routine Elevated erythrocyte sedimentation rate Expected: 07/15/2024 (Approximate), Expires: 07/15/2025 C-reactive Protein Lab Routine Elevated erythrocyte sedimentation rate Expected: 07/15/2024 (Approximate), Expires: 07/15/2025 CBC auto differential Lab Routine Abdominal discomfort Expected: 07/15/2024 (Approximate), Expires: 07/15/2025 documented as of this encounter Visit Diagnoses Diagnosis Osteopenia, unspecified location- Primary Primary osteoarthritis of both hands Dyslipidemia Other and unspecified hyperlipidemia Herpes simplex Herpes simplex without mention of complication Abdominal discomfort Abdominal pain, unspecified site Elevated erythrocyte sedimentation rate Elevated sedimentation rate documented in this encounter Additional Health Concerns Assessment Noted Time PHQ-9 Depression Total Score: 0 07/15/19 25 9:20 AM EST documented as of this encounter Care Teams Type Copyist Relationship Specialty Start Date End Date Darlin Tellez MD [address] [place] [address] PCP - General Family Medicine 01/28/19 documented as of this encounter
--- OUTSIDE RECORDS SUMMARY | 2024-07-15 10:51 | XMS_ITS | Encounter Summary ---
Author Organization [employer] [facility] Address [address] [facility] [address] [place] [address] Care Team Providers Care Behavioral Medical Director Name Role Phone Darlin Tellez MD Primary Care Provider [phone] Encounter Details Date Type Department Care Team (Latest Contact Info) Description 09/01/2021 Abstract [facility] CONVERSIONS Dental, Provider, DDS Social History Tobacco Use Types Packs/Day Years Used Date Smoking Tobacco: Never Assessed Comments Unknown Sex and Gender Information Value [...] Description 11/19/2024 10:00 AM EDT Office Visit [facility] [address] [place] [address] Melissa Vega documented as of this encounter Visit Diagnoses Not on filedocumented in this encounter Care Teams Behavioral Medical Director Relationship Specialty Start Date End Date Darlin Tellez MD [address] [place] [address] PCP - General Family Medicine 01/28/19 documented as of this encounter
--- OUTSIDE RECORDS SUMMARY | 2024-07-15 10:51 | XMS_ITS | Encounter Summary ---
Author Organization [employer] Address [address] [facility] [address] [place] [address] Care Team Providers Care Collaborative Physician Name Role Phone Darlin Tellez MD Primary Care Provider [phone] Encounter Details Date Type Department Care Team (Latest Contact Info) Description 08/20/2019 Abstract [facility] CONVERSIONS Dental, Provider, DDS Social History Tobacco [...] Description 11/19/2024 10:00 AM EDT Office Visit [facility] [address] [place] [address] Melissa Vega documented as of this encounter Visit Diagnoses Not on filedocumented in this encounter Care Teams Collaborative Physician Relationship Specialty Start Date End Date Darlin Tellez MD [address] [place] [address] PCP - General Family Medicine 01/28/19 documented as of this encounter
--- OUTSIDE RECORDS SUMMARY | 2024-07-15 10:51 | XMS_ITS | Encounter Summary ---
Author Organization [employer] Address [address] [facility] [address] [place] [address] Care Team Providers Care Process Designer Name Role Phone Darlin Tellez MD Primary Care Provider [phone] Reason for Visit * Reason Onset Date Comments chart prep 07/03/2024 Encounter Details Date Type Department Care Team ([facility] st Contact Info) Description 07/03/2024 Refill [facility] [address] [place], [place] [phone] Darlin Tellez MD [address] [place], [place] [phone] Social History Tobacco Use Types Packs/Day Years Used Date Smoking Tobacco: Never Passive Smoke Exposure: Never Smokeless Tobacco: Never Depression Answer Date Recorded Patient Health Questionnaire-9 Score 2 04/17/2024 Patient Health Questionnaire-9 Score 2 04/17/2024 Last PHQ-9: Questionnaire Data Not on file 1 06/17/2023 Housing Stability Answer Date Recorded What is your housing situation today? I have krissy sher 04/17/[address] you li ve. Do you have problems with any of the following? Not on file 04/17/2024 Food Insecurity Answer Date Recorded Within the [...] Date Recorded Patient Health Questionnaire-2 Score 0 04/17/2024 Internet Access Answer Date Recorded Internet Access [...] encounter Miscellaneous Notes * Telephone Encounter - Gisela Zavaleta [place] - 07/10/2024 3:12 PM EST .Chart Prep Labs: not done 04/18/24 Images: not done Vaccines due: Covid Due and Flu Due Referrals: Completed Screenings: Not Applicable Overdue care gaps: SDOH, Oral Health, and geovanny-7 documented in this encounter Plan of Treatment Upcoming Encounters Date Type Department Care Team (Late st Contact Info) Description 11/19/2024 10:00 AM EDT Office Visit [facility] [address] [place] [address] Melissa Vega documented as of this encounter Visit Diagnoses Not on filedocumented in this encounter Additional Health Concerns Assessment Noted Time PHQ-9 Depression Total Score: 2 04/17/20 24 9:27 AM EST documented as of this encounter Care Teams Process Designer Relationship Specialty Start Date End Date Darlin Tellez MD [address] [place] [address] PCP - General Family Medicine 01/28/19 documented as of this encounter
--- OUTSIDE RECORDS SUMMARY | 2024-07-15 10:51 | XMS_ITS | Encounter Summary ---
Author Organization [employer] Address [address] [facility] [address] [place] [address] Care Team Providers Care Commodities Clerk Name Role Phone Darlin Tellez MD Primary Care Provider [phone] Reason for Visit * Reason Onset Date Comments Med Refill 07/03/2024 Encounter Details Date Type Department Care Team ([facility] st Contact Info) Description 07/03/2024 Refill [facility] [address] [place], [place] [phone] Darlin Tellez MD [address] [place] [address] Social History Tobacco Use Types Packs/Day Years [...] encounter Miscellaneous Notes * Telephone Encounter - Ynes Delgadillo LPN - 07/03/2024 11:28 AM EST Next appointment 07/15/24. documented in this encounter Plan of Treatment Upcoming Encounters Date Type Department Care Team (Late st Contact Info) Description 11/19/2024 10:00 AM EDT Office Visit [facility] [address] [place] [address] Melissa Vega documented as of this encounter Visit Diagnoses Not on filedocumented in this encounter Additional Health Concerns Assessment Noted Time PHQ-9 Depression Total Score: 2 04/17/20 24 9:27 AM EST documented as of this encounter Care Teams Commodities Clerk Relationship Specialty Start Date End Date Darlin Tellez MD [address] [place] [address] PCP - General Family Medicine 01/28/19 documented as of this encounter
--- OUTSIDE RECORDS SUMMARY | 2024-07-15 10:51 | XMS_ITS | Encounter Summary ---
Author Organization [employer] Address [address] [place] [address] Care Team Providers Care V Belt Skiver Name Role Phone Darlin Tellez MD Primary Care Provider [phone] Encounter Details Date Type Department Care Team (Latest Contact Info) Description 07/16/2018 Abstract [facility] CONVERSIONS Dental, Provider, DDS Social [...] Description 11/19/2024 10:00 AM EDT Office Visit [facility] ADULT DENTAL [address] [place] [address] Melissa Vega documented as of this encounter Visit Diagnoses Not on filedocumented in this encounter Care Teams V Belt Skiver Relationship Specialty Start Date End Date Darlin Tellez MD [address] [place] [address] PCP - General Family Medicine 01/28/19 documented as of this encounter
--- OUTSIDE RECORDS SUMMARY | 2024-07-15 10:51 | XMS_ITS | Clinical Summary ---
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 03/15/20 22 Active clotrimazole-b etamethasone (Lotrisone) cream APPLY 2G OF CREAM TOPICALLY TO AFFECTED AREA EVERY 12 HOURS 04/18/20 22 Active prednisoLONE acetate (Pred-Forte) 1 % ophthalmic suspension INSTILL 1 DROP INTO EACH EYE 4 TIMES DAILY 07/19/19 23 Active hydrocortisone 2.5 % cream Apply pea sized amount to skin bid for 1 week 15 g 09/18/19 24 Active Pediatric Multivitamins- Fl (MultiVitamin + Fluoride) 0.25 MG chewable tablet Chew. 11/02/19 16 Active valACYclovir (Valtrex) 500 MG tablet Take 1 tablet (500 mg) by mouth Once per day. 90 tablet 3 04/17/20 24 Active atorvastatin (Lipitor) 10 MG tablet Take 1 tablet (10 mg) by mouth at bedtime. 90 tablet 3 04/18/20 24 Active alendronate (Fosamax) 70 MG tablet Take 1 tablet (70 mg) by mouth every 7 (seven) days. Take in the morning with a full glass of water, on an empty stomach, and do not take anything else by mouth or lie down for the next 30 min. 4 tablet 11 05/17/20 24 025 Active cetirizine (EQ Allergy Relief, Cetirizine,) 10 MG tablet TAKE 1 TABLET BY MOUTH EVERY DAY 90 tablet 1 07/03/19 25 Active cetirizine (EQ Allergy Relief, Cetirizine,) 10 MG tablet Take 1 tablet by mouth once daily 90 tablet 04/07/20 24 025 Discontinued(Re order (will not trigger notification to Pharmacy)) Active Problems Problem Noted Date Diagnosed Date Abdominal discomfort 07/15/2024 Assessment & Plan (07/15/2024 10:41 AM EST): - Ordered Lipase 07/15/24 - Ordered Basic Metabolic Panel 07/15/24 - Ordered Lipid Panel with Reflex to Direct LDL 07/15/24 - Ordered Hepatic Function Panel 07/15/24 - Ordered Helicobacter pylori Antigen, EIA, Stool 07/15/24 - Ordered CBC auto differential 07/15/24 Elevated erythrocyte sedimentation rate 07/15/19 Assessment & Plan (07/15/2024 10:42 AM EST): - Ordered Sed Rate by Ami Tate 07/15/24 - Ordered C-reactive Protein 07/15/24 Herpes simplex 04/17/2024 Assessment & Plan (07/15/2024 10:33 AM EST): - patient had > 3 episodes in 1 year - will start suppressive therapy with valacyclovir 500 mg daily Assessment & Plan (04/21/2024 11:31 AM EST): - patient had > 3 episodes in 1 year - will start suppressive therapy with valacyclovir 500 mg daily Missing teeth, acquired 08/07/2023 Dental plaque 08/07/2023 Gingival bleeding 08/07/2023 Osteoarthritis of both hands 07/08/2023 Assessment & Plan (07/15/2024 10:33 AM EST): - seen by orthopedist - recommended symptomatic treatment - Had surgery done on her left finger Assessment & Plan (07/08/2023 12:41 PM EST): - seen by orthopedist - recommended symptomatic treatment Skin lesion of hand 04/17/2023 Osteopenia 01/01/2023 Assessment & Plan (07/15/2024 9:17 AM EST): - most recent DEXA on 04/12/23 The lowest T-score -2.3 - bisphosphonate 70 mg weekly since Apr 2023, patient self-discontinued due to pain - continue weight-bearing exercise - maintain adequate Calcium and vitamin D intake - fall precaution - recheck DEXA in 2-3 years Assessment & Plan (04/17/2024 10:42 AM EST): - most recent DEXA on 04/12/23 The lowest T-score -2.3 - bisphosphonate 70 mg weekly since Apr 2023, patient self-discontinued due to pain - continue weight-bearing exercise - maintain adequate Calcium and vitamin D intake - fall precaution - recheck DEXA in 2-3 years Assessment & Plan (07/08/2023 12:42 PM EST): - most recent DEXA on 04/12/23 The lowest T-score -2.3 - bisphosphonate 70 mg weekly since Apr 2023 - continue weight-bearing exercise - maintain adequate Calcium and vitamin D intake - fall precaution - recheck DEXA in 2-3 years Assessment & Plan (01/04/2023 9:12 AM EDT): - recheck DEXA Dyslipidemia 12/26/2022 Assessment & Plan (07/15/2024 10:43 AM EST): - lipid profile 01/03/23 total cholesterol 180; triglyceride 85; HDL 67; LDL 96 - continue working on lifestyle modification - previously on atorvastatin 20 mg at bedtime, patient discontinued due to pain - Ordered Lipid Panel with Reflex to Direct LDL 07/15/24 Assessment & Plan (04/17/2024 10:41 AM EST): - lipid profile 01/03/23 total cholesterol 180; triglyceride 85; HDL 67; LDL 96 - continue working on lifestyle modification - previously on atorvastatin 20 mg at bedtime, patient discontinued due to pain Assessment & Plan (07/08/2023 12:45 PM EST): - lipid profile 01/03/23 total cholesterol 180; triglyceride 85; HDL 67; LDL 96 - continue working on lifestyle modification - continue atorvastatin 20 mg qhs Assessment & Plan (01/04/2023 9:12 AM EDT): - check lab - continue working on lifestyle modification - continue atorvastatin 20 mg qhs GERD (gastroesophageal reflux disease) Assessment & Plan (07/08/2023 12:43 PM EST): - famotidine Resolved Problems Problem Noted Date Diagnosed Date Resolved Date Pain of left middle finger 04/17/2023 0 07/08/2023 Encounters Date Type Department Care Team Description 07/15/2024 9:15 AM EST Office Visit [facility] [address] [place] [phone] Darlin Tellez MD Osteopenia, unspecified location (Primary Dx); Primary osteoarthritis of both hands; Dyslipidemia; Herpes simplex; Abdominal discomfort; Elevated erythrocyte sedimentation rate 07/15/2024 Travel 07/03/2024 Refill [facility] [address] [place] [address] Darlin Tellez MD 07/03/2024 Refill [facility] [address] [place] [phone] Darlin Tellez MD 05/22/2024 Telephone [facility] [address] [place] [phone] Gisela Zavaleta MA chart prep 05/16/2024 Refill [facility] [address] [place] [phone] Darlin Tellez MD 05/14/2024 11:00 AM EST Office Visit [facility] [address] [place] [phone] Melissa Vega Dental calculus (Primary Dx); Dental plaque 04/18/2024 Orders Only [facility] [address] [place] [phone] Darlin Tellez MD Elevated erythrocyte sedimentation rate (Primary Dx); Elevated C-reactive protein (CRP); Polyarthralgia 04/17/2024 9:30 AM EST Office Visit [facility] [address] [place] [address] Darlin Tellez MD Dyslipidemia (Primary Dx); Left shoulder pain, unspecified chronicity; Left elbow pain; Weight loss; Dark brown urine; Prediabetes; Osteopenia, unspecified location; Herpes simplex 04/17/2024 Travel 04/15/2024 Telephone [facility] [address] [place] [phone] Darlin Tellez MD Nurse Triage from Last 3 Months Immunizations Name Administration Dates Next Due Influenza High-dose Quadrivalent Preservative Fr ee 03/13/2020 Influenza injectable quadrivalent preservative f ree 05/12/2021 Influenza, High Dose Seasonal, Preservative Free 04/07/2019 Pfizer Covid-19 Vaccine 12+ 08/03/2020, Pneumococcal Conjugate PCV 13 04/07/2019 Pneumococcal Polysaccharide PPSV23 08/28/2018, Tdap 06/16/2019,10/02/2008 Social History Tobacco Use Types Packs/Day Years Used Date Smoking Tobacco: Never Passive Smoke Exposure: Never Smokeless Tobacco: Never Tobacco Cessation:Counseling Given: Not Answered Depression Answer Date Recorded Patient Health Questionnaire-9 [...] not to disclose 2021 10:24 AM EDT Last Filed Vital Signs Vital Sign Reading [...] Mass Index 20.97 07/15/2024 9:21 AM EST Plan of Treatment Upcoming Encounters Date Type Department Care Team (Late st Contact Info) Description 11/19/2024 10:00 AM EDT Office Visit [facility] [address] [place] [address] Melissa Vega Health Maintenance Due Date Last Done Comments Zoster Vaccines (1 of 2) 1995 RSV Patients and Patients Aged 60 years or older (1 - 1-dose 75+ series) 2020 SDOH Screening 01/03/2024 01/02/2023 COVID-19 Vaccine ( season) 2024 08/03/2020, 07/13/2020 Influenza Vaccine (#1) 2024 , 03/13/2020, 04/07/2019 Dental Oral Exam 11/13/2024 05/14/2024, , 11/29/2022, Additional history exists Dental Prophylaxis 11/13/2024 05/14/2024, 0 08/07/2023, 11/29/2022, Additional history exists Alcohol/Substance Use Screening 04/17/2025 04/17/2024 Diabetes: Hemoglobin A1C 04/17/2025 04/17/2024 Dental X-Ray: Bitewings 05/15/2025 05/14/20 24, 11/29/2022, 06/21/2016, Additional history exists Depression Screening 07/15/2025 07/15/2024, 07/15/19 Tobacco Screening 07/15/2025 07/15/2024 Dental X-Ray: Full Mouth 08/08/2026 024 (Patient Refused), 08/27/2013 DTaP/Tdap/Td Vaccines (3 - Td or Tdap) 06/16/2029 06/16/2019, 10/02/2008 Pneumococcal Vaccine: 50+ Years Completed 04/07/2019, 08/28/2018, 01/28/2015 Hepatitis C Screening Completed 09/21/2023 HIB Vaccines Aged Out No longer eligi ble based on patient's age to complete this topic HPV Vaccines Aged Out No longer eligi ble based on patient's age to complete this topic Hepatitis A Vaccines Aged Out No long er eligible based on patient's age to complete this topic Hepatitis B Vaccines Aged Out No long er eligible based on patient's age to complete this topic IPV Vaccines Aged Out No longer eligi ble based on patient's age to complete this topic Meningococcal Vaccine Aged Out No glynn narcisa eligible based on patient's age to complete this topic RSV under 20 months Aged Out No longe r eligible based on patient's age to complete this topic Rotavirus Vaccines Aged Out No longer eligible based on patient's age to complete this topic Procedures Procedure Name Priority Date/Time Associated Diagnosis Comments PERIODIC ORAL EVALUATION - ESTABLISHED PATIENT Routine 05/14/2024 11:00 AM EST ORAL HYGIENE INSTRUCTIONS Routine 05/14/2024 11:00 AM EST Dental calculus Dental plaque PROPHYLAXIS - ADULT Routine 05/14/2024 1 1:00 AM EST Dental calculus Dental plaque ADJUNCTIVE GENERAL SERVICES - PROFESSIONAL VISITS - CASE PRESENTATION, SUBSEQUENT TO DETAILED AND EXTENSIVE TREATMENT PLANNING Routine 05/14/2024 11:00 AM EST BITEWINGS - 3 RADIOGRAPHIC IMAGES Routine 05/14/2024 11:00 AM EST URIC ACID Routine 04/17/2024 11:00 AM EST Left shoulder pain, unspecified chronicity Left elbow pain HEMOGLOBIN A1C Routine 04/17/2024 11:00 AM EST Dyslipidemia Prediabetes CREATINE KINASE, TOTAL Routine 11:00 AM EST Dark brown urine URINALYSIS, COMPLETE, WITH REFLEX TO CULTURE Routine 04/17/2024 11:00 AM EST Dark brown urine TSH W/REFLEX TO FT4 Routine 04/17/2024 1 1:00 AM EST Weight loss SED RATE BY MODIFIED WESTERGREN Routine 04/17/2024 11:00 AM EST Left shoulder pain, unspecified chronicity Left elbow pain C-REACTIVE PROTEIN Routine 04/17/2024 11 :00 AM EST Left shoulder pain, unspecified chronicity Left elbow pain Dark brown urine HEPATIC FUNCTION PANEL Routine 11:00 AM EST Weight loss BASIC METABOLIC PANEL Routine 04/17/2024 11:00 AM EST Weight loss Dark brown urine CBC WITH AUTO DIFFERENTIAL Routine 04/17/2024 11:00 AM EST Weight loss LIPID PANEL WITH REFLEX TO DIRECT LDL Routine 04/17/2024 11:00 AM EST Dyslipidemia XR ELBOW 3+ VIEWS LEFT Routine 10:40 AM EST Left elbow pain XR SHOULDER 2+ VIEWS LEFT Routine 04/17/2024 10:39 AM EST Left shoulder pain, unspecified chronicity HEPATITIS C ANTIBODY Routine 09/21/2023 2:25 PM EDT Herpes simplex vulvovaginitis Vulvar pain Screening examination for STD (sexually transmitted disease) DIAGNOSTIC - DIAGNOSTIC IMAGING - INTRAORAL - COMPREHENSIVE SERIES OF RADIOGRAPHIC IMAGES Routine 08/27/2013 12:00 AM EDT from Last 3 Months or Most Recently Relevant to Health Maintenance Results * Urinalysis, Complete, with Reflex to Culture (04/17/2024 11:00 AM EST) Color Urine Yellow [facility] Appearance Urine Clear [facility] PH 6.5 5.0 - 9.0 [facility] Glucose Urine UA Negative Negative mg/dL [facility] Urine Blood Negative Negative [facility] Specific Otho - Urine <=1.005 1.005 - 1.025 [facility] Urine Protein Negative Neg-Trace mg/dL [facility] Urine Ketones Trace Negative mg/dL [facility] Nitrite Urine Negative Negative [facility] Leukocyte Esterase Urine Negative Negative [facility] RBC Urine 0-2 0 - 2 /HPF [facility] Urine WBC 0-5 0 - 5 /HPF [facility] Urine Squamous Epithelial Cell 0-2 0 - 2 /HPF [facility] Urine Bacteria None Seen None Seen [facility] Hyaline Casts, Urine 0-2 0 - 2 /LPF [facility] Urine 04/17/2024 11:0 0 AM EST 04/17/2024 12:55 PM EST Narrative [facility] - 04/17/2024 1:41 PM EST Urine, Clean Catch us Darlin Tellez MD LAB URINE ORDERABLES Final Resul t [facility] [address] [place] [phone] * TSH with Reflex to Free T4 (04/17/2024 11:00 AM EST) TSH reflex Free T4 1.69 0.32 - 4.0 uIU/mL [facility] Blood 04/17/2024 11:0 0 AM EST 04/17/2024 1:14 PM EST Darlin Tellez MD LAB BLOOD ORDERABLES Final Resul t Performing Organization Address [facility] Co de Phone Number [facility] [address] [place] [phone] * (ABNORMAL) Lipid Panel with Reflex to Direct LDL (04/17/2024 11:00 AM EST) Triglycerides 109 <150 mg/dL [facility] Comment:Slight Lipemia.Jay able Triglyceride: less than 150 mg/dLBorderline High Triglyceride 150-199 mg/dLHigh Triglyceride: 200-499 mg/dLVery High Triglyceride: greater than or equal to 5OO mg/dL Cholesterol 329(H) <200 mg/dL [facility] Comment:Desirable Cholestero l: less than 200 mg/dLBorderline High Cholesterol: 200-239 mg/dLHigh Cholesterol: greater than 239 mg/dL LDL Cholesterol Calculated 244(H) <100 mg/dL [facility] Comment:Desirable LDL: less than 100 mg/dLNear Optimal/Above Optimal LDL: 110- 129 mg/dLBorderline High LDL: 130-159 mg/dLHigh LDL: 160-189 mg/dLVery High LDL: greater than or equal to 190 mg/dL HDL Cholesterol 64 >40 mg/dL [facility] Comment:Desirable HDL: great er than 40 mg/dL Note: This HDL assay may give artificially low results in patients with liver disease. Blood 04/17/2024 11:0 0 AM EST 04/17/2024 1:14 PM EST Darlin Tellez MD LAB BLOOD ORDERABLES Final Resul t Performing Organization Address [facility]/ZIP Co de Phone Number [facility] [address] [place] [phone] * CBC auto differential (04/17/2024 11:00 AM EST) White Blood Count 5.0 4.8 - 10.8 X10*3/uL [facility] Red Blood Count 4.25 4.20 - 5.50 X10*6/uL [facility] Hemoglobin 12.6 12.0 - 16.0 g/dl [facility] Hematocrit 38.1 37.0 - 47.0 % [facility] Mean Corpuscular Volume 89.6 80.0 - 98.0 fL [facility] Mean Corpuscular Hemoglobin 29.6 27.0 - 33.0 pg [facility] Mean Corpuscular HGB Conc 33.1 31.0 - 35.0 g/dl [facility] Red Cell Distribution Width 13.4 11.0 - 16.0 % [facility] Platelet Count 237 160 - 400 X10*3/uL [facility] Mean Platelet Volume 10.9 9.4 - 12.3 fL [facility] Neutrophils Percent Auto 66.5 45 - 73 % [facility] Imm Gran Pct Auto 0.4 0.0 - 0.4 % [facility] Lymphocytes Percent Auto 24.1 20 - 40 % [facility] Monocytes Percent Auto 5.8 2 - 11 % [facility] Eosinophils Percent Auto 2.0 0 - 4 % [facility] Basophils Percent Auto 1.2 0 - 2 % [facility] NRBC Pct Auto 0.0 0.0 - 0.2 /100WBC [facility] Neutrophils Absolute Auto 3.3 2.0 - 8.3 x10*3/uL [facility] Imm Gran Abs Auto 0.02 0.00 - 0.03 X10*3/uL [facility] Lymphocytes Absolute Auto 1.2 1.2 - 4.9 X10*3/uL [facility] Monocytes Absolute Auto 0.3 0.1 - 1.2 X10*3/uL [facility] Eosinophils Absolute Auto 0.1 0.0 - 0.4 X10*3/uL [facility] Basophils Absolute Auto 0.1 0.0 - 0.2 X10*3/uL [facility] NRBC Abs Auto 0.000 0.0 - 0.012 X10*3/uL [facility] Blood Venous blood specimen / Unknown 04/17/2024 11:00 AM EST 04/17/2024 1:14 PM EST Darlin Tellez MD LAB BLOOD ORDERABLES Final Resul t Performing Organization Address [facility] Co de Phone Number [facility] [address] [place] [phone] * (ABNORMAL) Sed Rate by Modified Westergren (04/17/2024 11:00 AM EST) Erythrocyte Sedimentation Rate 69(H) 0 - 20 MM/HR [facility] Comment:Patients with polycy themia and many hemoglobin abnormalitiesmay have depressed sed rates whereas patients with anemiamay have elevated sed rates. Blood Venous blood specimen / Unknown 04/17/2024 11:00 AM EST 04/17/2024 1:14 PM EST us Darlin Tellez MD LAB BLOOD ORDERABLES Final Resul t Performing Organization Address [facility] Number [facility] [address] [place] [phone] * (ABNORMAL) C-reactive Protein (04/17/2024 11:00 AM EST) C Reactive Protein 2.01(H) < or = 0.50 mg/dL [facility] Blood Venous blood specimen / Unknown 04/17/2024 11:00 AM EST 04/17/2024 1:14 PM EST us Darlin Tellez MD LAB BLOOD ORDERABLES Final Resul t Performing Organization Address [facility] Co de Phone Number [facility] [address] [place] [phone] * Uric acid (04/17/2024 11:00 AM EST) Uric Acid 3.9 2.4 - 5.7 mg/dL [facility] Blood Venous blood specimen / Unknown 04/17/2024 11:00 AM EST 04/17/2024 1:14 PM EST Darlin Tellez MD LAB BLOOD ORDERABLES Final Resul t Performing Organization Address City/[facility]/ZIP Co de Phone Number [facility] [address] [place] [phone] * Hemoglobin A1c (04/17/2024 11:00 AM EST) Hemoglobin A1c 5.4 <6.0 % [facility] Comment:Hemoglobin A1C Refer ence Range Adults: 4.8 - 6.0 % Non diabetic: < 6.0 % Goal: < 7.0 %Additional Action Suggested: > 8.0 %Note: Hemoglobin A1c results are invalid for patients with abnormal amounts of HbF. Blood transfusions may impact the HbA1c concentration in the patient sample. Estimated Average Glucose 108 mg/dL [facility] Comment:eAG = Estimated ave rage glucose which is %A1C expressed asaverage glucose, using the formula of the F0C-ObgcayxBigizti Glucose study (ADAG), Diabetes Care, Vol.31,#8,Jan. 2007 Blood Venous blood specimen / Unknown 04/17/2024 11:00 AM EST 04/17/2024 1:14 PM EST us Darlin Tellez MD LAB BLOOD ORDERABLES Final Resul t Performing Organization Address City/[facility]/ZIP Co de Phone Number [facility] [address] [place] [address] [phone] * Creatine Kinase, Total (04/17/2024 11:00 AM EST) Creatine Kinase Total 51 26 - 140 U/L [facility] Blood Venous blood specimen / Unknown 04/17/2024 11:00 AM EST 04/17/2024 1:14 PM EST Darlin Tellez MD LAB BLOOD ORDERABLES Final Resul t Performing Organization Address [facility] Co de Phone Number [facility] [address] [place] [address] [phone] * Hepatic Function Panel (04/17/2024 11:00 AM EST) Pathologist [facility] Bilirubin, Total 0.7 0.0 - 1.0 mg/dL [facility] Bilirubin, Direct 0.3 0.0 - 0.5 mg/dL [facility] Aspartate Amino Transferase 31 5 - 31 U/L [facility] Alanine Aminotransferase 21 0 - 31 U/L [facility] Total Protein 8.0 6.5 - 8.0 g/dL [facility] Albumin Level 4.4 3.5 - 5.0 g/dL [facility] Alkaline Phosphatase 89 39 - 117 U/L [facility] Blood Venous blood specimen / Unknown 04/17/2024 11:00 AM EST 04/17/2024 1:14 PM EST Darlin Tellez MD LAB BLOOD ORDERABLES Final Resul t Performing Organization Address [facility] de Phone Number [facility] [address] [place] [phone] * (ABNORMAL) Basic Metabolic Panel (04/17/2024 11:00 AM EST) Pathologist [facility] Sodium 137 135 - 145 mmol/L [facility] Potassium 3.8 3.3 - 5.1 mmol/L [facility] Chloride 102 96 - 108 mmol/L [facility] Carbon Dioxide 27 22 - 29 mmol/L [facility] Anion Gap 12 12 - 20 [facility] Urea Nitrogen (BUN) 15 9 - 16 mg/dL [facility] Creatinine, Serum 0.59 0.5 - 1.4 mg/dL [facility] Estimated Glomerular Filt Rate >60 [facility] Comment:NOTE: For -Am erican individuals, multiply the result by 1.210.Chronic Kidney Disease: Estimated GFR < 60 mL/min/[id number] Kidney Disease: Estimated GFR < 15 mL/min/1.73m2 Glucose 95 60 - 115 mg/dL [facility] Calcium 10.4(H) 8.4 - 10.2 mg/dL [facility] Blood Venous blood specimen / Unknown 04/17/2024 11:00 AM EST 04/17/2024 1:14 PM EST us Darlin Tellez MD LAB BLOOD ORDERABLES Final Resul t [facility] [address] [place] [phone] [phone] * XR Elbow 3+ Views Left (04/17/2024 10:40 AM EST) Anatomical Region Laterality Modality Upper Extremities, Elbow Left Radiogr aphic Imaging 04/17/2024 10:4 0 AM EST Narrative 04/17/2024 2:37 PM EST ?[facility] ?[address] ?[place] [address] ?XRay Report ? Signed ? Patient: Terrebonne,Sowfong ?MR#: [id number] ? : 1945 ?Acct:[id number] ? Age/Sex: 78 / F ?ADM Date: 04/17/24 ? Loc: HO.HHCX ? Attending Dr: Darlin Tellez MD ? Ordering Physician: Darlin Tellez MD ?? Date of Service: 04/17/24 ?? Procedure(s): XR elbow LT min 3V ?? Accession Number(s): [id number] ? cc: Darlin Tellez MD ? EXAMINATION: ?? XR SHOULDER, LEFT. ?? XR ELBOW, LEFT. ? CLINICAL INFORMATION: ?? Left shoulder and arm pain ? COMPARISON: ?? None. ? TECHNIQUE: ?? 4 views of the left elbow. 3 views of the left shoulder. ? FINDINGS: ?? Left elbow: Normal alignment. No fracture. No joint effusion. ? Left shoulder: No fracture or malalignment. Mild acromioclavicular ?? osteoarthritis. Laterally downsloping acromion. ? XR/XR elbow LT min 3V ?? IMPRESSION: ?? LEFT ELBOW: ?? Normal. ? LEFT SHOULDER: ?? No fracture. Mild acromioclavicular osteoarthritis. ? Electronically signed by: ??Quinn Buenrostro MD ??04/17/2024 02:34 PM ?? EST RP ? Dictated By: ?Quinn Buenrostro MD ? Signed By: ?<Electronically signed by Quinn Buenrostro MD in OV> ? 04/17/24 1434 ? DD/ 1040 ? TD/TT: 04/17/24 1100 ? Crystal Grinder: DM ? Procedure Note Michael, Polly - 04/17/2024 [place] [address] XRay Report Signed Patient: Karla MunozMR#: [id number] : 5Acct:[id number] Age/Sex: 78 / FADM Date: 04/17/24 Loc: HO.HHCX Attending Dr: Darlin Tellez MD Ordering Physician: Darlin Tellez MD Date of Service: 04/17/24 Procedure(s): XR elbow LT min 3V Accession Number(s): [id number] cc: Darlin Tellez MD EXAMINATION: XR SHOULDER, LEFT. XR ELBOW, LEFT. CLINICAL INFORMATION: Left shoulder and arm pain COMPARISON: None. TECHNIQUE: 4 views of the left elbow. 3 views of the left shoulder. FINDINGS: Left elbow: Normal alignment. No fracture. No joint effusion. Left shoulder: No fracture or malalignment. Mild acromioclavicular osteoarthritis. Laterally downsloping acromion. XR/XR elbow LT min 3V IMPRESSION: LEFT ELBOW: Normal. LEFT SHOULDER: No fracture. Mild acromioclavicular osteoarthritis. Electronically signed by: Quinn Buenrostro MD 04/17/2024 02:34 PM EST RP Dictated By: uQinn Buenrostro MD Signed By: <Electronically signed by Quinn Buenrostro MD inOV> 04/17/24 1434 DD/ 1040 TD/TT: 04/17/24 1100 Crystal Grinder: ARLETTE us Darlin Tellez MD IMG XR PROCEDURES Final Result * XR Shoulder 2+ Views Left (04/17/2024 10:39 AM EST) Anatomical Region Laterality Modality Upper Extremities, Shoulder Left Radi ographic Imaging 04/17/2024 10:3 9 AM EST Narrative 04/17/2024 2:37 PM EST ?[facility] ?[address] ?[place] [address] ?XRay Report ? Signed ? Patient: Terrebonne,Sowfong ?MR#: [id number] ? : 1945 ?Acct:[id number] ? Age/Sex: 78 / F ?ADM Date: 04/17/24 ? Loc: HO.[facility]X ? Attending Dr: Darlin Tellez MD ? Ordering Physician: Darlin Tellez MD ?? Date of Service: 04/17/24 ?? Procedure(s): XR shoulder LT min 2V ?? Accession Number(s): [id number] ? cc: Darlin Tellez MD ? EXAMINATION: ?? XR SHOULDER, LEFT. ?? XR ELBOW, LEFT. ? CLINICAL INFORMATION: ?? Left shoulder and arm pain ? COMPARISON: ?? None. ? TECHNIQUE: ?? 4 views of the left elbow. 3 views of the left shoulder. ? FINDINGS: ?? Left elbow: Normal alignment. No fracture. No joint effusion. ? Left shoulder: No fracture or malalignment. Mild acromioclavicular ?? osteoarthritis. Laterally downsloping acromion. ? XR/XR shoulder LT min 2V ?? IMPRESSION: ?? LEFT ELBOW: ?? Normal. ? LEFT SHOULDER: ?? No fracture. Mild acromioclavicular osteoarthritis. ? Electronically signed by: ??Quinn Buenrostro MD ??04/17/2024 02:34 PM ?? EST RP ? Dictated By: ?Quinn Buenrostro MD ? Signed By: ?<Electronically signed by Quinn Buenrostro MD in OV> ? 04/17/24 1434 ? DD/ 1039 ? TD/TT: 04/17/24 1100 ? Crystal Grinder: DM ? Procedure Note Donotbrooketer, Image - 04/17/2024 [place] [address] XRay Report Signed Patient: Miladys Munoz#: [id number] : 5Acct:[id number] Age/Sex: 78 / FADM Date: 04/17/24 [facility] Attending Dr: Darlin Tellez MD Ordering Physician: Darlin Tellez MD Date of Service: 04/17/24 Procedure(s): XR shoulder LT min 2V Accession Number(s): [id number] cc: Darlin Tellez MD EXAMINATION: XR SHOULDER, LEFT. XR ELBOW, LEFT. CLINICAL INFORMATION: Left shoulder and arm pain COMPARISON: None. TECHNIQUE: 4 views of the left elbow. 3 views of the left shoulder. FINDINGS: Left elbow: Normal alignment. No fracture. No joint effusion. Left shoulder: No fracture or malalignment. Mild acromioclavicular osteoarthritis. Laterally downsloping acromion. XR/XR shoulder LT min 2V IMPRESSION: LEFT ELBOW: Normal. LEFT SHOULDER: No fracture. Mild acromioclavicular osteoarthritis. Electronically signed by: Quinn Buenrostro MD 04/17/2024 02:34 PM EST Dictated By: Quinn Buenrostro MD Signed By: <Electronically signed by Quinn Buenrostro MD inOV> 04/17/24 1434 DD/ 1039 TD/TT: 04/17/24 1100 Crystal Grinder: ARLETTE Darlin Tellez MD IMG XR PROCEDURES Final Result * Hepatitis C Ab (09/21/2023 2:25 PM EDT) Hepatitis C Antibody Nonreactive Nonreactive [facility] Comment:Antibodies to HCV no t detected; does not exclude early acuteHCV infection. Blood Venous blood specimen / Unknown 09/21/2023 2:25 PM EDT 09/21/2023 4:09 PM EDT us Yosi Name LAB BLOOD ORDERABLES Final Resul t [facility] [address] [place] [address] [phone] from Last 3 Months or Most Recently Relevant to Health Maintenance Insurance [place] [address] [place] [id number] [facility] STANDARD Care Teams Textile Machine Mechanic Relationship Specialty Start Date End Date Darlin Tellez MD [address] [place] [id number] PCP - General Family Medicine 01/28/19
--- OUTSIDE RECORDS SUMMARY | 2024-07-15 10:51 | XMS_ITS | Encounter Summary ---
Author Organization [employer] Address [address] [facility] [address] [place] [address] Care Team Providers Care Security Assurance Specialist Name Role Phone Darlin Tellez MD Primary Care Provider [phone] Encounter Details Date Type Department Care Team (Late st Contact Info) Description 11/22/2022 Orders Only [facility] [address] [place] [address] Ynes Delgadillo LPN Social History Tobacco Use Types Packs/Day Years [...] Description 11/19/2024 10:00 AM EDT Office Visit [facility] [address] [place] [address] Melissa Vega documented as of this encounter Visit Diagnoses Not on filedocumented in this encounter Care Teams Security Assurance Specialist Relationship Specialty Start Date End Date Darlin Tellez MD [address] [place] [address] PCP - General Family Medicine 01/28/19 documented as of this encounter
[2024-07-15 11:32] LABS: MANUAL DIFF FLAG NO
[2024-07-15 11:43] LABS: Basophils Percent Auto 1.1 % (0-2); Eosinophils Absolute Auto 0.2 X10*3/uL (0.0-0.4); Eosinophils Percent Auto 6.4 % (0-4); Hematocrit 38.2 % (37.0-47.0); Hemoglobin 12.5 g/dl (12.0-16.0); Imm Gran Abs Auto 0.01 X10*3/uL (0.00-0.03); Imm Gran Pct Auto 0.4 % (0.0-0.4); Lymphocytes Absolute Auto 0.9 X10*3/uL (1.2-4.9); Lymphocytes Percent Auto 32.5 % (20-40); Mean Corpuscular HGB Conc 32.7 g/dl (31.0-35.0); Mean Corpuscular Hemoglobin 29.5 pg (27.0-33.0); Mean Corpuscular Volume 90.1 fL (80.0-98.0); Mean Platelet Volume 10.7 fL (9.4-12.3); Monocytes Absolute Auto 0.3 X10*3/uL (0.1-1.2); Monocytes Percent Auto 10.4 % (2-11); Neutrophils Absolute Auto 1.4 x10*3/uL (2.0-8.3); Neutrophils Percent Auto 49.2 % (45-73); Platelet Count 201 X10*3/uL (160-400); Red Blood Count 4.24 X10*6/uL (4.20-5.50); Red Cell Distribution Width 13.5 % (11.0-16.0); White Blood Count 2.8 X10*3/uL (4.8-10.8)
[2024-07-15 11:57] LABS: Alanine Aminotransferase 22 U/L (0-31); Albumin Level 4.3 g/dL (3.5-5.0); Alkaline Phosphatase 86 U/L (39-117); Anion Gap 15 (12-20); Aspartate Amino Transferase 31 U/L (5-31); Bilirubin Direct 0.2 mg/dL (0.0-0.5); Bilirubin Total 0.6 mg/dL (0.0-1.0); Blood Urea Nitrogen 17 mg/dL (9-16); C Reactive Protein 2.19 mg/dL (< or = 0.50); Calcium 9.4 mg/dL (8.4-10.2); Carbon Dioxide 29 mmol/L (22-29); Chloride 101 mmol/L (96-108); Cholesterol 231 mg/dL (<200); Estimated Glomerular Filt Rate > 60; Glucose Random 98 mg/dL (60-115); HDL Cholesterol 58 mg/dL (>40); LDL Cholesterol Calculated 155 mg/dL (<100); Lipase 24 U/L (8-78); Potassium 4.2 mmol/L (3.3-5.1); Sodium 141 mmol/L (135-145); Triglycerides 93 mg/dL (<150)
[2024-07-15 12:16] LABS: Erythrocyte Sedimentation Rate 51 MM/HR (0-20)
[2024-07-15 13:23] LABS: Reflex LDLD? No
[2024-07-17 14:33] LABS: Cyclic Citrullinated Peptide <16 UNITS
[2024-07-18 10:59] LABS: Anti Nuclear Antibody Pattern Nuclear, Speckled; Anti Nuclear Antibody Screen POSITIVE (NEGATIVE)
== END 2024-07-15 10:07 | disposition home or self-care (01) ==
LOC: HO.HHCL 10:06
PROVIDERS: Visit Provider Family Medicine
DX: R70.0 Elevated erythrocyte sedimentation rate (principal); R79.82 Elevated C-reactive protein (CRP); M25.50 Pain in unspecified joint; E78.5 Hyperlipidemia, unspecified; R10.9 Unspecified abdominal pain
CPT/HCPCS: 36415; 80048; 80061; 80076; 83690; 85025; 85652; 86038; 86039; 86140; 86200; 86431

== ENCOUNTER 2024-07-16 12:58 | Outpatient (REF) | payer MEDICAID, SELFPAY ==
--- OUTSIDE RECORDS SUMMARY | 2024-07-16 14:18 | XMS_ITS | Encounter Summary ---
Author Organization [employer] Address [address] [place] [address] Care Team Providers Care Digital Media Producer Name Role Phone Darlin Tellez MD Primary Care Provider [phone] Encounter Details Date Type Department Care Team [...] Description 11/19/2024 10:00 AM EDT Office Visit [facility] [address] [place] [address] Melissa Vega documented as of this encounter Visit Diagnoses Not on filedocumented in this encounter Additional Health Concerns Assessment Noted Time PHQ-9 Depression Total Score: 0 07/15/19 25 9:20 AM EST documented as of this encounter Care Teams Digital Media Producer Relationship Specialty Start Date End Date Darlin Tellez MD [address] [place] [address] PCP - General Family Medicine 01/28/19 documented as of this encounter
--- OUTSIDE RECORDS SUMMARY | 2024-07-16 14:18 | XMS_ITS | Data Portability ---
Author Organization [facility], [address] Address [address] [place] [address] Care Team Providers Care Online Marketing Strategist Name Role Phone DANIELA SANTOS Primary Care Provider Assessment No assessment recorded. Plan of Treatment Reminders Order Date Submit Date Provider Last Modified By Organization Details Last Modified Time Details Appointments None recorded. Lab None recorded. Referral dermatologi st referral 2022 023 [facility], [address], [place], [address], 20:11:22 Procedures None recorded. Surgeries None recorded. Imaging None recorded. Medication Orders benzonatate 100 mg capsule 2022 023 [facility], [address] [place], [address], 20:05:50 Patient TargetsNo targets recorded. Patient Instructions Encounter Date Encounter Id Patient Instructions Last Modified By Organization Details Last Modified Time 04/17/2023 [id number] cough: care instructions [email or web address] Not available 04/17/2023 20:04:53 Reason for Referral Manager Document Control Referral for H and wart Referring Physician: Bella Moreno, Urgent Care, Encounter Date: 04/17/2023 Problems Name Problem SNOMED Code Status Onset Date Resolution Date Notes Provider Name and Address Organization Details Recorded Time Hypercholestero lemia 28452652 Active [facility] 19:01:33 Problem Notes [...] Updated DateTime 3 165.1 cm 20 kg/m2 37900.0 8 g 18 /min 8 99 % [...] SNOMED-CT Code Diagnosis ICD10 Code Diagnosis Note [id number] [address] [place] [address] 03/23/2018 11:50:28 03/23/2018 13:03:05 [id number] [address] [facility] [address] [place] [address] 01/08/2022 13:49:42 01/08/2022 16:10:36 [id number] Bella Moreno NP [address] [place] [address] 04/17/2023 18:41:29 04/17/2023 20:11:22 Acute bronchitis 20653640 J20.9 How can you care for yourself [...] You have a new rash. Annalisa macario [id number] B07. 8 Health Concerns Section Related Observation LastModified by Organization Detai ls LastModified Time None Recorded Concern Status LastModified by Organization Details LastModified Time None Recorded Advance Directives Directive None Recorded Payers Encounter Date Sequence Insurance Name Policy Number Policy Gonzalez Covered Member ID Gonzalez Member ID Guarantor Name 01/08/2022 1 [place] [employer] Orchard [id number] S[employer] Orchard 01/08/2022 2 [place] [facility] Sow-Davila Orchard [id number] Sowfong Tammy 04/17/2023 1 [place] B[place] [facility] G[facility]MENT SERVICES Sowfong Orchard [id number] Sowfong Tammy 04/17/2023 2 [place] [facility] Sow-Davila Tammy [id number] Sowfong Orchard Notes Date Note Type Note Provider Name [...] Moreno, RANDI [address] [place], [address], [place] - [facility] 04/17/2023 20:09:12 OBGyn Episode No OBEpisode recorded.
--- OUTSIDE RECORDS SUMMARY | 2024-07-16 14:18 | XMS_ITS | Clinical Summary ---
Author Organization [employer] Address [address] [facility] 7t [place] [address] Care Team Providers Care Steam Heating Installer Name Role Phone Darlin Tellez MD Primary Care Provider [phone] Allergies Active Allergy Reactions Criticality Noted Date Comments Aspirin Buf(Xnonlx-Zcrzyl-Aip) 03/27 Latex 01/01/2023 Medications Procto-Med HC 2.5 [...] erythrocyte sedimentation rate 07/15/19 Assessment & Plan (07/16/2024 10:15 AM EST): -last ESR 69 on 04/17/24 -recheck Herpes simplex 04/17/2024 Assessment & Plan (07/16/2024 10:16 AM EST): - patient had > 3 episodes in 1 year - tried suppressive therapy with valacyclovir 500 mg daily, but patient developed adverse reaction: hair loss - resume episodic use valacyclovir 500 mg bid x 3 days or 2 tabs daily x 5 days Assessment & Plan (04/21/2024 11:31 AM EST): [...] hand 04/17/2023 Osteopenia 01/01/2023 Assessment & Plan (07/16/2024 10:17 AM EST): - most recent DEXA on 04/12/23 The lowest T-score -2.3 - patient took bisphosphonate 70 mg weekly from Apr 2023 to Mar 2024, patient self-discontinued due to pain - continue [...] recheck DEXA Dyslipidemia 12/26/2022 Assessment & Plan (07/16/2024 10:17 AM EST): - lipid profile 01/03/23 total cholesterol 180; triglyceride 85; HDL 67; LDL 96 - continue working on lifestyle modification - currently prescribed atorvastatin 20 mg at bedtime, patient discontinued due to pain in 2023, but resumed Assessment & Plan (04/17/2024 10:41 AM EST): [...] Description 07/15/2024 9:15 AM EST Office Visit [facility] MEDICINE [address] [place] [phone] Darlin Tellez MD Osteopenia, unspecified location (Primary Dx); Primary osteoarthritis of both hands; Dyslipidemia; Herpes simplex; Abdominal discomfort; Elevated erythrocyte sedimentation rate 07/15/2024 Travel 07/03/2024 Refill [facility] [address] [place] [address] Darlin Tellez MD 07/03/2024 Refill [facility] [address] [place] [phone] Darlin Tellez MD 05/22/2024 Telephone [facility] [address] [place] [phone] Gisela Zavaleta MA chart prep 05/16/2024 Refill [facility] [address] [place] [address] Darlin Tellez MD 05/14/2024 11:00 AM EST Office Visit [facility] ADULT DENTAL [address] [place] [phone] Melissa Vega Dental calculus (Primary Dx); Dental plaque 04/18/2024 Orders Only [facility] [address] [place] [address] Darlin Tellez MD Elevated erythrocyte sedimentation rate (Primary Dx); Elevated C-reactive protein (CRP); Polyarthralgia 04/17/2024 9:30 AM EST Office Visit [facility] [address] [place] [address] Darlin Tellez MD Dyslipidemia (Primary Dx); Left shoulder pain, unspecified chronicity; Left elbow pain; Weight loss; Dark brown urine; Prediabetes; Osteopenia, unspecified location; Herpes simplex 04/17/2024 Travel 04/15/2024 Telephone [facility] [address] [place] [address] Darlin Tellez MD Nurse Triage from Last [...] Description 11/19/2024 10:00 AM EDT Office Visit [facility] ADULT DENTAL [address] [place] [address] Melissa Vega Health Maintenance Due Date Last [...] A1C 04/17/2025 04/17/2024 Dental X-Ray: Bitewings 05/15/2025 05/14/20, 11/29/2022, 06/21/2016, Additional history exists Depression Screening [...] Procedure Name Priority Date/Time Associated Diagnosis Comments CBC WITH AUTO DIFFERENTIAL Routine 07/15/2024 10:09 AM EST Abdominal discomfort C-REACTIVE PROTEIN Routine 07/15/2024 10 :09 AM EST Elevated erythrocyte sedimentation rate SED RATE BY MODIFIED WESTERGREN Routine 07/15/2024 10:09 AM EST Elevated erythrocyte sedimentation rate HEPATIC FUNCTION PANEL Routine 07/15/2024 10:09 AM EST Abdominal discomfort LIPID PANEL WITH REFLEX TO DIRECT LDL Routine 07/15/2024 10:09 AM EST Dyslipidemia Abdominal discomfort BASIC METABOLIC PANEL Routine 07/15/2024 10:09 AM EST Abdominal discomfort LIPASE Routine 07/15/2024 10:09 AM EST Abdominal discomfort RHEUMATOID FACTOR Routine 07/15/2024 10: 09 AM EST Elevated erythrocyte sedimentation rate Elevated C-reactive protein (CRP) Polyarthralgia PERIODIC ORAL EVALUATION - ESTABLISHED PATIENT Routine [...] EST Dyslipidemia Prediabetes CREATINE KINASE, TOTAL Routine 04/17/2024 11:00 AM EST Dark brown urine URINALYSIS, [...] Dark brown urine HEPATIC FUNCTION PANEL Routine 04/17/2024 11:00 AM EST Weight loss BASIC METABOLIC PANEL Routine 04/17/2024 11:00 AM EST Weight loss Dark brown urine CBC WITH AUTO DIFFERENTIAL Routine 04/17/2024 11:00 AM EST Weight loss LIPID PANEL WITH REFLEX TO DIRECT LDL Routine 04/17/2024 11:00 AM EST Dyslipidemia XR ELBOW 3+ VIEWS LEFT Routine 04/17/2024 10:40 AM EST Left elbow pain XR [...] Recently Relevant to Health Maintenance Results * (ABNORMAL) Lipid Panel with Reflex to Direct LDL (07/15/2024 10:09 AM EST) Only the most recent of2 resultswithin the time period is included. Triglycerides 93 <150 mg/dL [facility] Comment:Desirable Triglyceri de: less than 150 mg/dLBorderline High Triglyceride 150-199 mg/dLHigh Triglyceride: 200-499 mg/dLVery High Triglyceride: greater than or equal to 5OO mg/dL Cholesterol 231(H) <200 mg/dL [facility] Comment:Desirable Cholestero l: less than 200 mg/dLBorderline High Cholesterol: 200-239 mg/dLHigh Cholesterol: greater than 239 mg/dL LDL Cholesterol Calculated 155(H) <100 mg/dL [facility] Comment:Desirable LDL: less than 100 mg/dLNear Optimal/Above Optimal LDL: 110- 129 mg/dLBorderline High LDL: 130-159 mg/dLHigh LDL: 160-189 mg/dLVery High LDL: greater than or equal to 190 mg/dL HDL Cholesterol 58 >40 mg/dL [facility] Comment:Desirable HDL: great er than 40 mg/dL Note: This HDL assay may give artificially low results in patients with liver disease. Blood 07/15/2024 10:0 9 AM EST 07/15/2024 11:27 AM EST us Darlin Tellez MD LAB BLOOD ORDERABLES Final Resul t [facility] [address] [place] [phone] * (ABNORMAL) CBC auto differential (07/15/2024 10:09 AM EST) Only the most recent of2 resultswithin the time period is included. White Blood Count 2.8(L) 4.8 - 10.8 X10*3/uL [facility] Red Blood Count 4.24 4.20 - 5.50 X10*6/uL [facility] Hemoglobin 12.5 12.0 - 16.0 g/dl [facility] Hematocrit 38.2 37.0 - 47.0 % [facility] Mean Corpuscular Volume 90.1 80.0 - 98.0 fL [facility] Mean Corpuscular Hemoglobin 29.5 27.0 - 33.0 pg [facility] Mean Corpuscular HGB Conc 32.7 31.0 - 35.0 g/dl [facility] Red Cell Distribution Width 13.5 11.0 - 16.0 % [facility] Platelet Count 201 160 - 400 X10*3/uL [facility] Mean Platelet Volume 10.7 9.4 - 12.3 fL [facility] Neutrophils Percent Auto 49.2 45 - 73 % [facility] Imm Gran Pct Auto 0.4 0.0 - 0.4 % [facility] Lymphocytes Percent Auto 32.5 20 - 40 % [facility] Monocytes Percent Auto 10.4 2 - 11 % [facility] Eosinophils Percent Auto 6.4(H) 0 - 4 % [facility] Basophils Percent Auto 1.1 0 - 2 % [facility] NRBC Pct Auto 0.0 0.0 - 0.2 /100WBC [facility] Neutrophils Absolute Auto 1.4(L) 2.0 - 8.3 x10*3/uL [facility] Imm Gran Abs Auto 0.01 0.00 - 0.03 X10*3/uL [facility] Lymphocytes Absolute Auto 0.9(L) 1.2 - 4.9 X10*3/uL [facility] Monocytes Absolute Auto 0.3 0.1 - 1.2 X10*3/uL [facility] Eosinophils Absolute Auto 0.2 0.0 - 0.4 X10*3/uL [facility] Basophils Absolute Auto 0.0 0.0 - 0.2 X10*3/uL [facility] NRBC Abs Auto 0.000 0.0 - 0.012 X10*3/uL [facility] Blood Venous blood specimen / Unknown 07/15/2024 10:09 AM EST 07/15/2024 11:27 AM EST us Darlin Tellez MD LAB BLOOD ORDERABLES Final Resul t [facility] [address] [place] [address] [phone] * (ABNORMAL) Sed Rate by Modified Lea (07/15/2024 10:09 AM EST) Only the most recent of2 resultswithin the time period is included. Erythrocyte Sedimentation Rate 51(H) 0 - 20 MM/HR [facility] Comment:Patients with polycy themia and many hemoglobin abnormalitiesmay have depressed sed rates whereas patients with anemiamay have elevated sed rates. Blood Venous blood specimen / Unknown 07/15/2024 10:09 AM EST 07/15/2024 11:27 AM EST Darlin Tellez MD LAB BLOOD ORDERABLES Final Resul t Performing Organization Address City/[facility]/ZIP Co de Phone Number [facility] [address] [place] [phone] * (ABNORMAL) Rheumatoid Factor (07/15/2024 10:09 AM EST) Rheumatoid Factor 16.0(H) <15.0 IU/mL [facility] Blood Venous blood specimen / Unknown 07/15/2024 10:09 AM EST 07/15/2024 11:27 AM EST Darlin Tellez MD LAB BLOOD ORDERABLES Final Resul t Performing Organization Address [facility] Phone Number [facility] [address] [place] [phone] * (ABNORMAL) C-reactive Protein (07/15/2024 10:09 AM EST) Only the most recent of2 resultswithin the time period is included. C Reactive Protein 2.19(H) < or = 0.50 mg/dL [facility] Blood Venous blood specimen / Unknown 07/15/2024 10:09 AM EST 07/15/2024 11:27 AM EST Darlin Tellez MD LAB BLOOD ORDERABLES Final Resul t Performing Organization Address [facility] Co de Phone Number [facility] [address] [place] [phone] * Lipase (07/15/2024 10:09 AM EST) Lipase 24 8 - 78 U/L [facility] Blood Venous blood specimen / Unknown 07/15/2024 10:09 AM EST 07/15/2024 11:27 AM EST Darlin Tellez MD LAB BLOOD ORDERABLES Final Resul t Performing Organization Address [facility] Co de Phone Number [facility] [address] [place] [phone] * Hepatic Function Panel (07/15/2024 10:09 AM EST) Only the most recent of2 resultswithin the time period is included. Bilirubin, Total 0.6 0.0 - 1.0 mg/dL [facility] Bilirubin, Direct 0.2 0.0 - 0.5 mg/dL [facility] Aspartate Amino Transferase 31 5 - 31 U/L [facility] Alanine Aminotransferase 22 0 - 31 U/L [facility] Total Protein 8.0 6.5 - 8.0 g/dL [facility] Albumin Level 4.3 3.5 - 5.0 g/dL [facility] Alkaline Phosphatase 86 39 - 117 U/L [facility] Blood Venous blood specimen / Unknown 07/15/2024 10:09 AM EST 07/15/2024 11:27 AM EST Darlin Tellez MD LAB BLOOD ORDERABLES Final Resul t Performing Organization Address [facility] Co de Phone Number [facility] [address] [place] [phone] * (ABNORMAL) Basic Metabolic Panel (07/15/2024 10:09 AM EST) Only the most recent of2 resultswithin the time period is included. Sodium 141 135 - 145 mmol/L [facility] Potassium 4.2 3.3 - 5.1 mmol/L [facility] Chloride 101 96 - 108 mmol/L [facility] Carbon Dioxide 29 22 - 29 mmol/L [facility] Anion Gap 15 12 - 20 [facility] Urea Nitrogen (BUN) 17(H) 9 - 16 mg/dL [facility] Creatinine, Serum 0.68 0.5 - 1.4 mg/dL [facility] Estimated Glomerular Filt Rate >60 [facility] Comment:Chronic Kidney Disea se: Estimated GFR < 60 mL/min/1.80f4Nohpok Kidney Disease: Estimated GFR < 15 mL/min/1.73m2 Glucose 98 60 - 115 mg/dL [facility] Calcium 9.4 8.4 - 10.2 mg/dL [facility] Blood Venous blood specimen / Unknown 07/15/2024 10:09 AM EST 07/15/2024 11:27 AM EST us Darlin Tellez MD LAB BLOOD ORDERABLES Final Resul t [facility] [address] [place] [phone] * Urinalysis, Complete, with Reflex to Culture (04/17/2024 11:00 AM EST) Color Urine Yellow [facility] Appearance Urine Clear [facility] PH 6.5 5.0 - 9.0 [facility] Glucose Urine UA Negative Negative mg/dL [facility] Urine Blood Negative Negative [facility] Specific [place] - Urine <=1.005 1.005 - 1.025 [facility] Urine Protein Negative Neg-Trace mg/dL [facility] Urine Ketones Trace Negative mg/dL [facility] Nitrite Urine Negative Negative [facility] Leukocyte Esterase Urine Negative Negative [facility] RBC Urine 0-2 0 - 2 /HPF [facility] Urine WBC 0-5 0 - 5 /HPF [facility] Urine Squamous Epithelial Cell 0-2 0 - 2 /HPF [facility] Urine Bacteria None Seen None Seen [facility] Hyaline Casts, Urine 0-2 0 - 2 /LPF [facility] Urine 04/17/2024 11:0 0 AM EST 04/17/2024 12:55 PM EST Narrative [facility] - 04/17/2024 1:41 PM EST Urine, Clean Catch us Darlin Tellez MD LAB URINE ORDERABLES Final Resul t Performing Organization Address City/[facility]/ZIP Co de Phone Number [facility] [address] [place] [phone] * TSH with Reflex to Free T4 (04/17/2024 11:00 AM EST) TSH reflex Free T4 1.69 0.32 - 4.0 uIU/mL [facility] Blood 04/17/2024 11:0 0 AM EST 04/17/2024 1:14 PM EST us Darlin Tellez MD LAB BLOOD ORDERABLES Final Resul t Performing Organization Address [facility] Co de Phone Number [facility] [address] [place] [phone] * Uric acid (04/17/2024 11:00 AM EST) Uric Acid 3.9 2.4 - 5.7 mg/dL [facility] Blood Venous blood specimen / Unknown 04/17/2024 11:00 AM EST 04/17/2024 1:14 PM EST us Darlin Tellez MD LAB BLOOD ORDERABLES Final Resul t Performing Organization Address [facility] Co de Phone Number [facility] [address] [place] [phone] * Hemoglobin A1c (04/17/2024 11:00 AM EST) Hemoglobin A1c 5.4 <6.0 % [facility] Comment:Hemoglobin A1C Refer ence Range Adults: 4.8 - 6.0 % Non diabetic: < 6.0 % Goal: < 7.0 %Additional Action Suggested: > 8.0 %Note: Hemoglobin A1c results are invalid for patients with abnormal amounts of HbF. Blood transfusions may impact the HbA1c concentration in the patient sample. Estimated Average Glucose 108 mg/dL [facility] Comment:eAG = Estimated ave rage glucose which is %A1C expressed asaverage glucose, using the formula of the F8N-EjhcvoeVqhhegx Glucose study (ADAG), Diabetes Care, Vol.31,#8,Jan. 2007 Blood Venous blood specimen / Unknown 04/17/2024 11:00 AM EST 04/17/2024 1:14 PM EST Darlin Tellez MD LAB BLOOD ORDERABLES Final Resul t Performing Organization Address [facility] Co de Phone Number [facility] [address] [place] [address] [phone] * Creatine Kinase, Total (04/17/2024 11:00 AM EST) Creatine Kinase Total 51 26 - 140 U/L [facility] Blood Venous blood specimen / Unknown 04/17/2024 11:00 AM EST 04/17/2024 1:14 PM EST Darlin Tellez MD LAB BLOOD ORDERABLES Final Resul t Performing Organization Address [facility] de Phone Number [facility] [address] [place] [phone] * XR Elbow 3+ Views Left (04/17/2024 10:40 AM EST) Anatomical Region Laterality Modality Upper Extremities, Elbow Left Radiogr aphic Imaging 04/17/2024 10:4 0 AM EST Narrative 04/17/2024 2:37 PM EST ?[facility] ?[address] ?[place] [address] ?XRay Report ? Signed ? Patient: Tammy,Sowfong ?MR#: [id number] ? : 1945 ?Acct:[id number] ? Age/Sex: 78 / F ?ADM Date: 04/17/24 ? Loc: HO.HHCX ? Attending Dr: Darlin Tellez MD ? Ordering Physician: Darlin Tellez MD ?? Date of Service: 04/17/24 ?? Procedure(s): XR elbow LT min 3V ?? Accession Number(s): [id number] ? cc: Darlin Tellez MD ? EXAMINATION: [...] DD/ 1040 ? TD/TT: 04/17/24 1100 ? Web Assistant: DM ? Procedure Note Polly Rodriguez - 04/17/2024 [facility] [address] [place] [address] XRay Report Signed Patient: Karla MunozMR#: [id number] : 5Acct:[id number] Age/Sex: 78 / FADM Date: 04/17/24 Loc: HO.HHCX Attending Dr: Darlin Tellez MD Ordering Physician: Darlin Tellez MD Date of Service: 04/17/24 Procedure(s): XR elbow LT min 3V Accession Number(s): [id number] cc: Darlin Tellez MD EXAMINATION: XR SHOULDER, [...] 04/17/24 1434 DD/ 1040 TD/TT: 04/17/24 1100 Web Assistant: ARLETTE Darlin Tellez MD IMG XR PROCEDURES Final Result * XR Shoulder 2+ Views Left (04/17/2024 10:39 AM EST) Anatomical Region Laterality Modality Upper Extremities, Shoulder Left Radi ographic Imaging 04/17/2024 10:3 9 AM EST Narrative 04/17/2024 2:37 PM EST ?[facility] ?[address] ?[place] [address] ?XRay Report ? Signed ? Patient: [place],Sowfong ?MR#: [id number] ? : 1945 ?Acct:[id number] ? Age/Sex: 78 / F ?ADM Date: 11/07/24 ? Loc: HO.HHCX ? Attending Dr: Darlin Tellez MD ? Ordering Physician: Darlin Tellez MD ?? Date of Service: 04/17/24 ?? Procedure(s): XR shoulder LT min 2V ?? Accession Number(s): [id number] ? cc: Darlin Tellez MD ? EXAMINATION: [...] DD/ 1039 ? TD/TT: 04/17/24 1100 ? Web Assistant: DM ? Procedure Note Polly Rodriguez - 04/17/2024 [place] [address] XRay Report Signed Patient: Karla MunozMR#: [id number] : 5Acct:[id number] Age/Sex: 78 / FADM Date: 04/17/24 Loc: HO.HHCX Attending Dr: Darlin Tellez MD Ordering Physician: Darlin Tellez MD Date of Service: 04/17/24 Procedure(s): XR shoulder LT min 2V Accession Number(s): [id number] cc: Darlin Tellez MD EXAMINATION: XR SHOULDER, [...] 04/17/2024 02:34 PM EST RP Dictated By: Quinn Buenrostro MD Signed By: <Electronically signed by Quinn Buenrostro MD inOV> 04/17/24 1434 DD/ 1039 TD/TT: 04/17/24 1100 Web Assistant: DM Darlin Tellez MD IMG XR PROCEDURES Final Result * Hepatitis C Ab (09/21/2023 2:25 PM EDT) Hepatitis C Antibody Nonreactive Nonreactive [facility] Comment:Antibodies to HCV no t detected; does not exclude early acuteHCV infection. Blood Venous blood specimen / Unknown 09/21/2023 2:25 PM EDT 09/21/2023 4:09 PM EDT Yois Peres MD LAB BLOOD ORDERABLES Final Resul t [facility] [address] [place] [address] [phone] from Last 3 Months or Most Recently Relevant to Health Maintenance Insurance MEDICARE [facility] Care Teams Steam Heating Installer Relationship Specialty Start Date End Date Darlin Tellez MD [address] [place] [address] PCP - General Family Medicine 01/28/19
--- OUTSIDE RECORDS SUMMARY | 2024-07-16 14:18 | XMS_ITS | Encounter Summary ---
Author Organization [employer] Address [address] [facility] [address]t [place] [address] Care Team Providers Care Adjunct Writing Instructor Name Role Phone Darlin Tellez MD Primary Care Provider [phone] Encounter Details Date Type Department Care Team (Latest Contact Info) Description 09/01/2021 Abstract [facility] CONVERSIONS Dental, Provider, DDS Social History Tobacco [...] Description 11/19/2024 10:00 AM EDT Office Visit [facility] ADULT DENTAL [address] [place] [address] Melissa Vega documented as of this encounter Visit Diagnoses Not on filedocumented in this encounter Care Teams Adjunct Writing Instructor Relationship Specialty Start Date End Date Darlin Tellez MD [address] [place] [address] PCP - General Family Medicine 01/28/19 documented as of this encounter
--- OUTSIDE RECORDS SUMMARY | 2024-07-16 14:18 | XMS_ITS | Encounter Summary ---
Author Organization [employer] Address [address] [facility] [address]t [place] [address] Care Team Providers Care Professor Of English Name Role Phone Darlin Tellez MD Primary Care Provider [phone] Reason for Visit * Reason Onset Date Comments Med Refill 07/03/2024 Encounter Details Date Type Department Care Team ([facility] st Contact Info) Description 07/03/2024 Refill [facility] PEDS [address] [place], [place] [phone] Darlin Tellez MD [address] [place] [address] Social History Tobacco Use Types Packs/Day Years [...] Description 11/19/2024 10:00 AM EDT Office Visit [facility] ADULT DENTAL [address] [place] [address] Melissa Vega documented as of this encounter Visit Diagnoses Not on filedocumented in this encounter Additional Health Concerns Assessment Noted Time PHQ-9 Depression Total Score: 2 04/17/20 24 9:27 AM EST documented as of this encounter Care Teams Professor Of English Relationship Specialty Start Date End Date Darlin Tellez MD [address] [place] [address] PCP - General Family Medicine 01/28/19 documented as of this encounter
--- OUTSIDE RECORDS SUMMARY | 2024-07-16 14:18 | XMS_ITS | Encounter Summary ---
Author Organization [employer] Address [address] [facility] [address]t [place] [address] Care Team Providers Care Mining And Quarrying Machinery Repairer Name Role Phone Darlin Tellez MD Primary Care Provider [phone] Encounter Details Date Type Department Care Team (Latest Contact Info) Description 08/20/2019 Abstract [facility] CONVERSION[facility] Dental, Provider, DDS Social History Tobacco [...] Description 11/19/2024 10:00 AM EDT Office Visit [facility] ADULT DENTAL [address] [place] [address] Melissa Vega documented as of this encounter Visit Diagnoses Not on filedocumented in this encounter Care Teams Mining And Quarrying Machinery Repairer Relationship Specialty Start Date End Date Darlin Tellez MD [address] [place] [address] PCP - General Family Medicine 01/28/19 documented as of this encounter
--- OUTSIDE RECORDS SUMMARY | 2024-07-16 14:18 | XMS_ITS | Encounter Summary ---
Author Organization [employer] Address [address] [facility] [address]t [place] [address] Care Team Providers Care Concrete Form Setter And Finisher Name Role Phone Darlin Tellez MD Primary Care Provider [phone] Encounter Details Date Type Department Care Team (Latest Contact Info) Description 07/16/2018 Abstract [facility] CONVERSIONS Dental, Provider, DDS Social History Tobacco [...] 10:00 AM EDT Office Visit [facility] ADULT DENTAL [address] [place] [address] Melissa Vega documented as of this encounter Visit Diagnoses Not on filedocumented in this encounter Care Teams Concrete Form Setter And Finisher Relationship Specialty Start Date End Date Darlin Tellez MD [address] [place] [address] PCP - General Family Medicine 01/28/19 documented as of this encounter
--- OUTSIDE RECORDS SUMMARY | 2024-07-16 14:18 | XMS_ITS | Encounter Summary ---
Author Organization [employer] Address 75 [facility] 7t [place] [address] Care Team Providers Care Cow Rider Name Role Phone Darlin Tellez MD Primary Care Provider [phone] Reason for Visit * Reason Onset Date Comments Appointment Request 01/23/2024 Encounter Details Date Type Department Care Team ([facility] st Contact Info) Description 01/23/2024 Telephone [facility] MEDICINE [address] [place], [place] [phone] Darlin Tellez MD [address] [place], [place] [phone] Appointment Request Social History Tobacco Use Types [...] Description 11/19/2024 10:00 AM EDT Office Visit [facility] ADULT DENTAL [address] [place] [address] Melissa Vega documented as of this encounter Visit Diagnoses Not on filedocumented in this encounter Additional Health Concerns Assessment Noted Time PHQ-9 Depression Total Score: 0 01/03/20 23 9:26 AM EDT documented as of this encounter Care Teams Cow Rider Relationship Specialty Start Date End Date Darlin Tellez MD [address] [place] [address] PCP - General Family Medicine 01/28/19 documented as of this encounter
--- OUTSIDE RECORDS SUMMARY | 2024-07-16 14:18 | XMS_ITS | Encounter Summary ---
Author Organization [facility] [employer] Address 75 [facility] 7t [place] [address] Care Team Providers Care Wireless Technician Name Role Phone Darlin Tellez MD Primary Care Provider [phone] Reason for Visit * Reason Onset Date Comments Nurse Triage 04/17/2023 Encounter Details Date Type Department Care Team ([facility] st Contact Info) Description 04/17/2023 Telephone [facility] MEDICINE [address] [place], [place] [phone] Darlin Tellez MD [address] [place], [place] [phone] Nurse Triage Social History Tobacco Use Types [...] t he electric, gas, oil or water [employer] threatened to shut off services in your [...] Description 11/19/2024 10:00 AM EDT Office Visit [facility] ADULT DENTAL [address] [place] [address] Melissa Vega documented as of this encounter Visit Diagnoses Not on filedocumented in this encounter Additional Health Concerns Assessment Noted Time PHQ-9 Depression Total Score: 0 01/03/20 23 9:26 AM EDT documented as of this encounter Care Teams Wireless Technician Relationship Specialty Start Date End Date Darlin Tellez MD [address] [place] [address] PCP - General Family Medicine 01/28/19 documented as of this encounter
--- OUTSIDE RECORDS SUMMARY | 2024-07-16 14:18 | XMS_ITS | Encounter Summary ---
Author Organization [employer] Address 75 [facility] 7t [place] [address] Care Team Providers Care Carpet Yarn Winder Operator Name Role Phone Darlin Tellez MD Primary Care Provider [phone] Reason for Visit * Reason Onset Date Comments chart prep 07/03/2024 Encounter Details Date Type Department Care Team ([facility] st Contact Info) Description 07/03/2024 Refill [facility] MEDICINE [address] [place], [place] [phone] Darlin Tellez MD [address] [place], [place] [phone] Social History Tobacco Use Types Packs/Day Years [...] Description 11/19/2024 10:00 AM EDT Office Visit [facility] ADULT DENTAL [address] [place] [address] Melissa Vega documented as of this encounter Visit Diagnoses Not on filedocumented in this encounter Additional Health Concerns Assessment Noted Time PHQ-9 Depression Total Score: 2 04/17/20 24 9:27 AM EST documented as of this encounter Care Teams Carpet Yarn Winder Operator Relationship Specialty Start Date End Date Darlin Tellez MD [address] [place] [address] PCP - General Family Medicine 01/28/19 documented as of this encounter
--- OUTSIDE RECORDS SUMMARY | 2024-07-16 14:18 | XMS_ITS | Encounter Summary ---
Author Organization [employer] Address 75 [facility] 7t [place] [address] Care Team Providers Care Orthophotography Technician Name Role Phone Darlin Tellez MD Primary Care Provider [phone] Encounter Details Date Type Department Care Team (Latest Contact Info) Description 07/15/2024 9:15 AM EST Office Visit [facility] MEDICINE [address] [place] [address] [phone] Darlin Tellez MD 230 [place], [place] [phone] Osteopenia, unspecified location (Primary Dx); Primary osteoarthritis [...] 9:21 AM EST documented in this encounter Progress Notes * Darlin Tellez MD - 07/15/2024 9:15 AM EST Subjective Karla Munoz is a 79 y.o. female who has dyslipidemia and osteopenia, and patient presents for follow up of chronic conditions. Background: Our last encounter was 04/17/2024. She was not feeling well. She stated she had been having pain allover her body, feeling weak, and noticing dark urine color. She stated she stopped taking atorvastatin and alendronate due to pain. Changed valacyclovir to suppressive therapy, rather than episodic therapy. Interval history: Lab showed markedly elevated LDL cholesterol. No sign of myositis. Patient was encouraged to resumestatin therapy. Today: Last week pt was coughing for 3 days, noting she only drank water to remedy to cough. Pt was experiencing hair loss, but once the client stopped using her valACYclovir medication, the hair loss stopped. Pt explained she is not losing as much hair as before, where she was losing almosttwo hand fulls of hair while on medication. Pt notes she is still using her cholesterol medication but is no longer using her osteoporosis medication, alendronate. Pt is still experiencing soreness on the bilateral sides of her arms, but also notes she has been exercising twice a week. Pt has lost 5 lbs in one year. Reports eating mostly chicken and stake, withplenty of vegetables. Pt is cutting out desserts from her diet. Pt has experienced dizziness in the morning intermittently. Pt explained she has been getting eye floaters and is concerned that it may be due to liver issues. Pt had an operation on her left third finger because she was experiencing pain. Pt did not eat breakfast this morning. Pt has been experiencing discomfort on her mid abdomen. Pt will suddenly feel pain on her central abdomen which feels heat in that area. Pt does not report any constipation. No blood in stool. No nausea as of today. Pain is not associate with food intake. No heartburn or regurgitation. Review of Systems Constitutional: Negative for activity change, appetite change and fever. Respiratory: Negative for shortness of breath. Cardiovascular: Negative for chest pain. Objective Vitals: 07/15/24 0921 BP: 128/70 Pulse: 84 Resp: 20 Temp: 97.1 ??F (36.2 ??C) TempSrc: Temporal SpO2: 99% Weight: 125 lb 1.6 oz (56.7 kg) Height: 5' 4.76 (1.645 m) Physical Exam Constitutional: General: She is not in acute distress. Appearance: Normal appearance. She is not ill-appearing. HENT: Head: Normocephalic and atraumatic. Mouth/Throat: Mouth: Mucous membranes are moist. Eyes: Extraocular Movements: Extraocular movements intact. Pupils: Pupils are equal, round, and reactive to light. Cardiovascular: Rate and Rhythm: Normal rate and regular rhythm. Heart sounds: No murmur heard. Pulmonary: Effort: Pulmonary effort is normal. No respiratory distress. Breath sounds: Normal breath sounds. No wheezing or rhonchi. Skin: General: Skin is warm. Neurological: Mental Status: She is alert. Mental status is at baseline. Psychiatric: Mood and Affect: Mood normal. Results: Lab Results Component Value Date NA 141 07/15/2024 K 4.2 07/15/2024 CL 101 07/15/2024 CO2 29 07/15/2024 BUN 17 (H) 07/15/2024 CREATININE 0.68 07/15/2024 EGFR >60 07/15/2024 GLUCOSE 98 07/15/2024 TOTALBILIRUB 0.6 07/15/2024 AST 31 07/15/2024 ALT 22 07/15/2024 TOTPROTEIN 8.0 07/15/2024 ALB 4.3 07/15/2024 ALP 86 07/15/2024 Lab Results Component Value Date TRIG 93 07/15/2024 CHOL 231 (H) 07/15/2024 LDLCHOLCAL 155 (H) 07/15/2024 HDL 58 07/15/2024 Lab Results Component Value Date HGBA1C 5.4 04/17/2024 Lab Results Component Value Date WBC 2.8 (L) 07/15/2024 HGB 12.5 07/15/2024 HCT 38.2 07/15/2024 PLT 201 07/15/2024 MCV 90.1 07/15/2024 Lab Results Component Value Date TSH 1.69 04/17/2024 Screening and Health Care Maintenance: PHQ-2/9 Score: Patient Health Questionnaire-9 Score: 0 (07/15/2024 9:20 AM) Patient Health Questionnaire-2 Score: 0 (07/15/2024 9:20 AM) Thoughts that you would be better off or hurting yourself in some way: Not at all (07/15/2024 9:20 AM) GISELA-7 Score: GISELA-7 Total Score: 3 (07/15/2024 9:20 AM) Health Maintenance Due Topic Date Due Zoster Vaccines (1 of 2) Never done RSV Patients and Patients Aged 60 years or older (1 - 1-dose 75+ series) Never done SDOH Screening 01/03/2024 Influenza Vaccine (1) 02/10/2024 COVID-19 Vaccine (3 - 2024-25 season) 2024 Assessment/Plan Problem List Items Addressed This Visit Dyslipidemia - lipid profile 01/03/23 total cholesterol 180; triglyceride 85; HDL 67; LDL 96 - continue working on lifestyle modification - currently prescribed atorvastatin 20 mg at bedtime, patient discontinued due to pain in 2023, butresumed Relevant Orders Lipid Panel with Reflex to Direct LDL (Completed) Osteopenia - Primary - most recent DEXA on 04/12/23 The lowest T-score -2.3 - patient took bisphosphonate 70 mg weekly from Apr 2023 to Mar 2024, patient self-discontinued dueto pain - continue weight-bearing exercise - maintain adequate Calcium and vitamin D intake - fall precaution - recheck DEXA in 2-3 years Osteoarthritis of both hands - seen by orthopedist - recommended symptomatic treatment - Had surgery done on her left finger 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 in 1 year - tried suppressive therapy with valacyclovir 500 mg daily, but patient developed adverse reaction:hair loss - resume episodic use valacyclovir 500 mg bid x 3 days or 2 tabs daily x 5 days Abdominal discomfort - Ordered Lipase 07/15/24 - Ordered Basic Metabolic Panel 07/15/24 - Ordered Lipid Panel with Reflex to Direct LDL 07/15/24 - Ordered Hepatic Function Panel 07/15/24 - Ordered Helicobacter pylori Antigen, EIA, Stool 07/15/24 - Ordered CBC auto differential 07/15/24 Relevant Orders Lipase (Completed) Basic Metabolic Panel (Completed) Lipid Panel with Reflex to Direct LDL (Completed) Hepatic Function Panel (Completed) Helicobacter pylori Antigen, EIA, Stool CBC auto differential (Completed) Elevated erythrocyte sedimentation rate -last ESR 69 on 04/17/24 -recheck Relevant Orders Sed Rate by Modified Westergren (Completed) C-reactive Protein (Completed) Allergies Allergen Reactions Aspirin Buf(Nojfwe-Ajajzb-Zea) Latex Current Outpatient Medications Medication Instructions alendronate (FOSAMAX) 70 mg, Oral, Every 7 days, Take in the morning with a full glass of water, sean empty stomach, and do not take anything else by mouth or lie down for the next 30 min. atorvastatin (LIPITOR) 10 mg, Oral, Nightly cetirizine (EQ Allergy Relief, Cetirizine,) 10 MG tablet TAKE 1 TABLET BY MOUTH EVERY DAY clotrimazole-betamethasone (Lotrisone) cream APPLY 2G OF CREAM TOPICALLY TO AFFECTED AREA EVERY 12 HOURS famotidine (PEPCID) 20 mg, Oral, Nightly hydrocortisone 2.5 % cream Apply pea sized amount to skin bid for 1 week Pediatric Multivitamins-Fl (MultiVitamin + Fluoride) 0.25 MG chewable tablet Oral prednisoLONE acetate (Pred-Forte) 1 % ophthalmic suspension INSTILL 1 DROP INTO EACH EYE 4 TIMES DAILY Procto-Med HC 2.5 % rectal cream APPLY THIN LAYER TO THE AFFECTED AREA 2-4 TIMES DAILY valACYclovir (VALTREX) 500 mg, Oral, Daily Follow-up: 3 months or sooner if any problem arises. Scribe Attestation: I, Ynes Hightower, am serving as a scribe to document services personally performed by Darlin Tellez MD, based on the patient's response to questions by provider and provides statements to me. documented in this encounter Miscellaneous Notes * Assessment & Plan Note - Ynes Hightower MA - 07/15/2024 10:42 AM EST Associated Problem(s): Elevated erythrocyte sedimentation rate -last ESR 69 on 04/17/24 -recheck * Assessment & Plan Note - Ynes [...] 500 mg daily, but patient developed adverse reaction:hair loss - resume episodic use valacyclovir 500 mg bid x 3 days or 2 tabs daily x 5 days * Assessment & Plan Note - Ynes [...] patient discontinued due to pain in 2023, butresumed * Assessment & Plan Note - Ynes Hightower MA - 07/15/2024 9:17 AM ESTAssociated Problem(s): Osteopenia - most recent DEXA on 04/12/23 The lowest T-score -2.3 - patient took bisphosphonate 70 mg weekly from Apr 2023 to Mar 2024, patient self-discontinued dueto pain - continue weight-bearing exercise - maintain adequate Calcium and vitamin D intake - fall precaution - recheck DEXA in 2-3 years documented in this encounter Plan of Treatment Upcoming Encounters Date Type Department Care Team (Late st Contact Info) Description 11/19/2024 10:00 AM EDT Office Visit [facility] ADULT DENTAL [address] [facility] [place] [address] Melissa Vega Scheduled Orders Name Type Priority Associated Diagnoses Orde r Schedule Helicobacter pylori??Antigen, EIA, Stool Lab Routine Abdominal discomfort Expected: 07/15/2024 (Approximate), Expires: 07/15/2025 documented as of this encounter Procedures Procedure Name Priority Date/Time Associated Diagnosis Comments LIPID PANEL WITH REFLEX TO DIRECT LDL Routine 07/15/2024 10:09 AM EST Dyslipidemia Abdominal discomfort CBC WITH AUTO DIFFERENTIAL Routine 07/15/2024 10:09 AM EST Abdominal discomfort SED RATE BY MODIFIED WESTERGREN Routine 07/15/2024 10:09 AM EST Elevated erythrocyte sedimentation rate C-REACTIVE PROTEIN Routine 07/15/2024 10 :09 AM EST Elevated erythrocyte sedimentation rate LIPASE Routine 07/15/2024 10:09 AM EST Abdominal discomfort HEPATIC FUNCTION PANEL Routine 07/15/2024 10:09 AM EST Abdominal discomfort BASIC METABOLIC PANEL Routine 07/15/2024 10:09 AM EST Abdominal discomfort documented in this encounter Results * (ABNORMAL) CBC auto differential (07/15/2024 10:09 AM EST) White Blood Count 2.8(L) 4.8 - 10.8 X10*3/uL [facility] Red Blood Count 4.24 4.20 - 5.50 X10*6/uL [facility] Hemoglobin 12.5 12.0 - 16.0 g/dl [facility] Hematocrit 38.2 37.0 - 47.0 % [facility] Mean Corpuscular Volume 90.1 80.0 - 98.0 fL [facility] Mean Corpuscular Hemoglobin 29.5 27.0 - 33.0 pg [facility] Mean Corpuscular HGB Conc 32.7 31.0 - 35.0 g/dl [facility] Red Cell Distribution Width 13.5 11.0 - 16.0 % [facility] Platelet Count 201 160 - 400 X10*3/uL [facility] Mean Platelet Volume 10.7 9.4 - 12.3 fL [facility] Neutrophils Percent Auto 49.2 45 - 73 % [facility] Imm Gran Pct Auto 0.4 0.0 - 0.4 % [facility] Lymphocytes Percent Auto 32.5 20 - 40 % [facility] Monocytes Percent Auto 10.4 2 - 11 % [facility] Eosinophils Percent Auto 6.4(H) 0 - 4 % [facility] Basophils Percent Auto 1.1 0 - 2 % [facility] NRBC Pct Auto 0.0 0.0 - 0.2 /100WBC [facility] Neutrophils Absolute Auto 1.4(L) 2.0 - 8.3 x10*3/uL [facility] Imm Gran Abs Auto 0.01 0.00 - 0.03 X10*3/uL [facility] Lymphocytes Absolute Auto 0.9(L) 1.2 - 4.9 X10*3/uL [facility] Monocytes Absolute Auto 0.3 0.1 - 1.2 X10*3/uL [facility] Eosinophils Absolute Auto 0.2 0.0 - 0.4 X10*3/uL [facility] Basophils Absolute Auto 0.0 0.0 - 0.2 X10*3/uL [facility] NRBC Abs Auto 0.000 0.0 - 0.012 X10*3/uL [facility] Blood Venous blood specimen / Unknown 07/15/2024 10:09 AM EST 07/15/2024 11:27 AM EST us Darlin Tellez MD LAB BLOOD ORDERABLES Final Resul t Performing Organization Address City/[facility] Co de Phone Number [facility] [address] [place] [phone] * (ABNORMAL) C-reactive Protein (07/15/2024 10:09 AM EST) C Reactive Protein 2.19(H) < or = 0.50 mg/dL [facility] Blood Venous blood specimen / Unknown 07/15/2024 10:09 AM EST 07/15/2024 11:27 AM EST us Darlin Tellez MD LAB BLOOD ORDERABLES Final Resul t Performing Organization Address [place]/[facility] Co de Phone Number [facility] [address] [place] [phone] * (ABNORMAL) Sed Rate by Modified Westergren (07/15/2024 10:09 AM EST) Erythrocyte Sedimentation Rate 51(H) 0 - 20 MM/HR [facility] Comment:Patients with polycy themia and many hemoglobin abnormalitiesmay have depressed sed rates whereas patients with anemiamay have elevated sed rates. Blood Venous blood specimen / Unknown 07/15/2024 10:09 AM EST 07/15/2024 11:27 AM EST us Darlin Tellez MD LAB BLOOD ORDERABLES Final Resul t Performing Organization Address [place]/[facility] Co de Phone Number [facility] [address] [place] [phone] * Hepatic Function Panel (07/15/2024 10:09 AM EST) Bilirubin, Total 0.6 0.0 - 1.0 mg/dL [facility] Bilirubin, Direct 0.2 0.0 - 0.5 mg/dL [facility] Aspartate Amino Transferase 31 5 - 31 U/L [facility] Alanine Aminotransferase 22 0 - 31 U/L [facility] Total Protein 8.0 6.5 - 8.0 g/dL [facility] Albumin Level 4.3 3.5 - 5.0 g/dL [facility] Alkaline Phosphatase 86 39 - 117 U/L [facility] Blood Venous blood specimen / Unknown 07/15/2024 10:09 AM EST 07/15/2024 11:27 AM EST Darlin Tellez MD LAB BLOOD ORDERABLES Final Resul t Performing Organization Address [place]/[facility] de Phone Number [facility] [address] [place] [phone] * (ABNORMAL) Lipid Panel with Reflex to Direct LDL (07/15/2024 10:09 AM EST) Triglycerides 93 <150 mg/dL [facility] Comment:Desirable Triglyceri de: less than 150 mg/dLBorderline High Triglyceride 150-199 mg/dLHigh Triglyceride: 200-499 mg/dLVery High Triglyceride: greater than or equal to 5OO mg/dL Cholesterol 231(H) <200 mg/dL [facility] Comment:Desirable Cholestero l: less than 200 mg/dLBorderline High Cholesterol: 200-239 mg/dLHigh Cholesterol: greater than 239 mg/dL LDL Cholesterol Calculated 155(H) <100 mg/dL [facility] Comment:Desirable LDL: less than 100 mg/dLNear Optimal/Above Optimal LDL: 110- 129 mg/dLBorderline High LDL: 130-159 mg/dLHigh LDL: 160-189 mg/dLVery High LDL: greater than or equal to 190 mg/dL HDL Cholesterol 58 >40 mg/dL [facility] Comment:Desirable HDL: great er than 40 mg/dL Note: This HDL assay may give artificially low results in patients with liver disease. Blood 07/15/2024 10:0 9 AM EST 07/15/2024 11:27 AM EST Darlin Tellez MD LAB BLOOD ORDERABLES Final Resul t Performing Organization Address City/[facility]/ZIP Co de Phone Number [facility] [address] [place] [phone] * (ABNORMAL) Basic Metabolic Panel (07/15/2024 10:09 AM EST) Sodium 141 135 - 145 mmol/L [facility] Potassium 4.2 3.3 - 5.1 mmol/L [facility] Chloride 101 96 - 108 mmol/L [facility] Carbon Dioxide 29 22 - 29 mmol/L [facility] Anion Gap 15 12 - 20 [facility] Urea Nitrogen (BUN) 17(H) 9 - 16 mg/dL [facility] Creatinine, Serum 0.68 0.5 - 1.4 mg/dL [facility] Estimated Glomerular Filt Rate >60 [facility] Comment:Chronic Kidney Disea se: Estimated GFR < 60 mL/min/[id number] Kidney Disease: Estimated GFR < 15 mL/min/1.73m2 Glucose 98 60 - 115 mg/dL [facility] Calcium 9.4 8.4 - 10.2 mg/dL [facility] Blood Venous blood specimen / Unknown 07/15/2024 10:09 AM EST 07/15/2024 11:27 AM EST Darlin Tellez MD LAB BLOOD ORDERABLES Final Resul t Performing Organization Address City/[facility]/ZIP Co de Phone Number [facility] [address] [place] [phone] * Lipase (07/15/2024 10:09 AM EST) Lipase 24 8 - 78 U/L [facility] Blood Venous blood specimen / Unknown 07/15/2024 10:09 AM EST 07/15/2024 11:27 AM EST us Darlin Tellez MD LAB BLOOD ORDERABLES Final Resul t Performing Organization Address City/[facility]/ZIP Co de Phone Number [facility] [address] [place] [phone] documented in this encounter Visit Diagnoses Diagnosis Osteopenia, unspecified [...] documented as of this encounter Care Teams Orthophotography Technician Relationship Specialty Start Date End Date Darlin Tellez MD [address] [place] [phone] PCP - General Family Medicine 01/28/19 documented as of this encounter
--- OUTSIDE RECORDS SUMMARY | 2024-07-16 14:18 | XMS_ITS | Encounter Summary ---
Author Organization [employer] Address 75 [facility] 7t [place] [address] Care Team Providers Care Berry Grower Name Role Phone Darlin Tellez MD Primary Care Provider [phone] Encounter Details Date Type Department Care Team (Late st Contact Info) Description 11/22/2022 Orders Only [facility] MED & PEDS [address] [place] [address] Ynes Delgadillo LPN Social History Tobacco Use [...] Description 11/19/2024 10:00 AM EDT Office Visit [facility] ADULT DENTAL [address] [place] [address] Melissa Vega documented as of this encounter Visit Diagnoses Not on filedocumented in this encounter Care Teams Berry Grower Relationship Specialty Start Date End Date Darlin Tellez MD [address] [place] [address] PCP - General Family Medicine 01/28/19 documented as of this encounter
--- OUTSIDE RECORDS SUMMARY | 2024-07-16 14:18 | XMS_ITS | Encounter Summary ---
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, right hand Procedures BD DEXA Axial Darlin Tellez MD [address] [place] [address] Phone: tel: fax: [address] Phone: tel: fax: Referral ID Status Reason Start Date Expiration Date Visits Re quested Visits Authorized [id number] Closed 03/21/2023 03/20/2024 1 1 Encounter Details Date Type Department Care Team (Late st Contact Info) Description 01/05/2023 Orders Only [facility] MEDICINE [address] [place], [place] [phone] Darlin Tellez MD [address] [place], [place] [phone] Postartificial menopausal syndrome (Primary Dx); Screening for [...] Description 11/19/2024 10:00 AM EDT Office Visit [facility] ADULT DENTAL [address] [place] [address] Melissa Vega Scheduled Orders Name Type Priority [...] documented as of this encounter Care Teams Roofing Sales Representative Relationship Specialty Start Date End Date Darlin Tellez MD [address] [place] [address] PCP - General Family Medicine 01/28/19 documented as of this encounter
--- OUTSIDE RECORDS SUMMARY | 2024-07-16 14:18 | XMS_ITS | Encounter Summary ---
Author Organization [employer] Address 75 [facility] 7t [place] [address] Care Team Providers Care Parachute Manufacturing Supervisor Name Role Phone Darlin Tellez MD Primary Care Provider [phone] Encounter Details Date Type Department Care Team (Late st Contact Info) Description 04/17/2023 Orders Only [facility] [address] [place], [place] [phone] Darlin Tellez MD [address] [place], [place] [phone] Social History Tobacco Use Types Packs/Day Years [...] Description 11/19/2024 10:00 AM EDT Office Visit [facility] [address] [place] [address] Melissa Vega documented as of this encounter Visit Diagnoses Not on filedocumented in this encounter Additional Health Concerns Assessment Noted Time PHQ-9 Depression Total Score: 0 01/03/20 23 9:26 AM EDT documented as of this encounter Care Teams Parachute Manufacturing Supervisor Relationship Specialty Start Date End Date Darlin Tellez MD [address] [place] [address] PCP - General Family Medicine 01/28/19 documented as of this encounter
== END 2024-07-16 12:59 | disposition home or self-care (01) ==
LOC: HO.HHCLNP 12:58
PROVIDERS: Visit Provider Family Medicine
DX: R10.9 Unspecified abdominal pain (principal)
CPT/HCPCS: 87338

== ENCOUNTER 2024-10-22 10:30 | Outpatient (REF) | payer MEDICAID, SELFPAY ==
--- OUTSIDE RECORDS SUMMARY | 2024-10-22 11:31 | XMS_ITS | Encounter Summary ---
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, right hand Procedures BD DEXA Axial Darlin Tellez MD [address] [place] [address] Phone: tel: fax: [address] Phone: tel: fax: Referral ID Status Reason Start Date Expiration Date Visits Re quested Visits Authorized [id number] Closed 03/21/2023 03/20/2024 1 1 Encounter Details Date Type Department Care Team (Late st Contact Info) Description 01/05/2023 Orders Only [facility] [address] [place], [place] [phone] Darlin Tellez MD [address] [place], [place] [phone] Postartificial menopausal syndrome (Primary Dx); Screening for [...] Description 11/19/2024 10:00 AM EDT Office Visit [facility] [address] [place] [address] Melissa Vega Scheduled Orders Name Type Priority [...] documented as of this encounter Care Teams Jewelry Store Manager Relationship Specialty Start Date End Date Darlin Tellez MD [address] [place] [address] PCP - General Family Medicine 01/28/19 documented as of this encounter
--- OUTSIDE RECORDS SUMMARY | 2024-10-22 11:31 | XMS_ITS | Clinical Summary ---
Author Organization [employer] Address 75 [facility] 7t [place] [address] Care Team Providers Care Animal Pathologist Name Role Phone Darlin Tellez MD Primary Care Provider [phone] Allergies Active Allergy Reactions Criticality Noted Date Comments Aspirin Buf(Dcgbqc-Dwrlnf-Wle) 03/27 Latex 01/01/2023 Medications Procto-Med HC 2.5 % rectal cream APPLY THIN LAYER TO THE AFFECTED AREA 2-4 TIMES DAILY 2 Active famotidine (Pepcid) 20 MG tablet Take 20 mg by mouth at bedtime. 2 Active clotrimazole-be tamethasone (Lotrisone) cream APPLY 2G OF CREAM TOPICALLY TO AFFECTED AREA EVERY 12 HOURS 2 Active prednisoLONE acetate (Pred-Forte) 1 % ophthalmic suspension INSTILL 1 DROP INTO EACH EYE 4 TIMES DAILY 3 Active Pediatric Multivitamins-F l (MultiVitamin + Fluoride) 0.25 MG chewable tablet Chew. 6 Active atorvastatin (Lipitor) 10 MG tablet Take 1 tablet (10 mg) by mouth at bedtime. 90 tablet 3 4 Active cetirizine (EQ Allergy Relief, Cetirizine,) 10 MG tablet TAKE 1 TABLET BY MOUTH EVERY DAY 90 tablet 1 5 Active valACYclovir (Valtrex) 500 MG tablet Take 1 tablet (500 mg) by mouth Once per day. Take 1 tablet by mouth twice daily for 3 days, or 2 tablets by mouth once daily for 5 days for herpes outbreak 30 tablet 1 5 Active Active Problems Problem Noted Date Diagnosed Date [...] erythrocyte sedimentation rate 07/15/19 Assessment & Plan (10/22/2024 10:15 AM EDT): - ESR 69 in 2023. Repeat ESR 51 on 2024 - evaluated by rn mds coordinator on September 2024. Tried prednisone for possible PMR. Prednisone was discontinued due to ineffectiveness. - Pt will try acupuncture and non pharmacological treatments Assessment & Plan (07/16/2024 10:15 AM EST): [...] hand 04/17/2023 Osteopenia 01/01/2023 Assessment & Plan (10/22/2024 8:50 AM EDT): - most recent DEXA on 04/12/23 The lowest T-score -2.3 - patient took bisphosphonate 70 mg weekly from Apr 2023 to Mar 2024, patient self-discontinued due to pain - continue weight-bearing exercise - maintain adequate Calcium and vitamin D intake - fall precaution - recheck DEXA in 2-3 years Assessment & Plan (07/16/2024 10:17 AM EST): [...] recheck DEXA Dyslipidemia 12/26/2022 Assessment & Plan (10/22/2024 10:16 AM EDT): - lipid profile 07/15/24 total cholesterol 231; triglyceride 93; HDL 58; LDL 155 - continue working on lifestyle modification - currently prescribed atorvastatin 10 mg at bedtime, patient discontinued due to pain in 2023, but resumed Assessment & Plan (07/16/2024 10:17 AM EST): [...] Encounters Date Type Department Care Team Description 10/22/2024 9:30 AM EDT Office Visit [facility] [address] [place] [address] Darlin Tellez MD Dyslipidemia (Primary Dx); Osteopenia, unspecified location; Leukopenia, unspecified type; Elevated erythrocyte sedimentation rate 10/22/2024 Travel 10/21/2024 Telephone [facility] [address] [place] [address] Darlin Tellez MD CHART PREP 08/22/2024 Population Health Risk Score [facility] ([facility]) Department [address] [address] Provider, Population Health Generic from Last 3 Months Immunizations Immunization Administration Dates Next Due Influenza High-dose Quadrivalent [...] the past 12 months, has t he [employer], gas, oil or water company threatened to [...] Sign Reading Time Taken Comments Blood Pressure 118/62 10/22/2024 9:24 AM EDT Pulse 75 10/22/2024 9:24 AM EDT Temperature 36.2 ??C (97.1 ??F) 10/22/2024 9:24 AM ED T Respiratory Rate 20 10/22/2024 9:24 AM EDT Oxygen Saturation 98% 10/22/2024 9:24 AM EDT Inhaled Oxygen Concentration - - Weight 57.2 kg (126 lb 3.2 oz) 10/22/2024 9:24 A M EDT Height 162.6 cm (5' 4 ) 10/22/2024 9:24 AM EDT Body Mass Index 21.66 10/22/2024 9:24 AM EDT Plan of Treatment Upcoming Encounters Date Type Department Care Team (Late st Contact Info) Description 11/19/2024 10:00 AM EDT Office Visit [facility] [address] [place] [address] Dora Vegasa Health Maintenance Due Date Last Done Comments [...] 05/14/2024, 0 08/07/2023, 11/29/2022, Additional history exists Diabetes: Hemoglobin A1C 04/17/2025 04/17/2024 Dental X-Ray: Bitewings 05/15/2025 05/14/20 24, 11/29/2022, 06/21/2016, Additional history exists Depression Screening 07/15/2025 07/15/2024, 07/15/19 Alcohol/Substance Use Screening 10/22/2025 10/22/2024 Tobacco Screening 10/22/2025 10/22/2024 Dental X-Ray: Full Mouth 08/08/2026 024 (Patient [...] patient's age to complete this topic Meningococcal B Vaccine Aged Out No l onger eligible based on patient's age to complete [...] Procedure Name Priority Date/Time Associated Diagnosis Comments PROPHYLAXIS - ADULT Routine 05/14/2024 1 1:00 AM EST Dental calculus Dental plaque BITEWINGS - 3 RADIOGRAPHIC IMAGES Routine 05/14/2024 11:00 AM EST PERIODIC ORAL EVALUATION - ESTABLISHED PATIENT Routine 05/14/2024 11:00 AM EST HEMOGLOBIN A1C Routine 04/17/2024 11:00 AM EST Dyslipidemia Prediabetes HEPATITIS C ANTIBODY Routine 09/21/2023 2:25 PM EDT Herpes simplex vulvovaginitis Vulvar pain Screening examination for STD (sexually transmitted disease) INTRAORAL - COMPLETE SERIES OF RADIOGRAPHIC IMAGES Routine 08/27/2013 12:00 AM EDT from Last 3 Months or Most Recently Relevant to Health Maintenance Results * Hemoglobin A1c (04/17/2024 11:00 AM EST) Hemoglobin A1c 5.4 <6.0 % [facility] Comment:Hemoglobin A1C Refer ence Range Adults: 4.8 - 6.0 % Non diabetic: < 6.0 % Goal: < 7.0 %Additional Action Suggested: > 8.0 %Note: Hemoglobin A1c results are invalid for patients with abnormal amounts of HbF. Blood transfusions may impact the HbA1c concentration in the patient sample. Estimated Average Glucose 108 mg/dL [facility] Comment:eAG = Estimated ave rage glucose which is %A1C expressed asaverage glucose, using the formula of the E7R-PrlqemhZnqowvr Glucose study (ADAG), Diabetes Care, Vol.31,#8,2007 Blood Venous blood specimen / Unknown 04/17/2024 11:00 AM EST 04/17/2024 1:14 PM EST Darlin Tellez MD LAB BLOOD ORDERABLES Final Resul t Performing Organization Address [facility] Co de Phone Number [facility] [address] [place] [phone] * Hepatitis C Ab (09/21/2023 2:25 PM EDT) Hepatitis C Antibody Nonreactive Nonreactive [facility] Comment:Antibodies to HCV no t detected; does not exclude early acuteHCV infection. Blood Venous blood specimen / Unknown 09/21/2023 2:25 PM EDT 09/21/2023 4:09 PM EDT Yosi Peres MD LAB BLOOD ORDERABLES Final Resul t Performing Organization Address [facility] Co de Phone Number [facility] [address] [place] [phone] from Last 3 Months or Most Recently Relevant to Health Maintenance Insurance [place] [address] [place] [id number] [facility] STANDARD Care Teams Animal Pathologist Relationship Specialty Start Date End Date Darlin Tellez MD [address] [place] [address] PCP - General Family Medicine 01/28/19
--- OUTSIDE RECORDS SUMMARY | 2024-10-22 11:31 | XMS_ITS | Data Portability ---
Author Organization [facility], [address] Address [address] [place] [address] Care Team Providers Care Plate Hanger Name Role Phone DANIELA SANTOS Primary Care Provider [phone] Assessment No assessment recorded. Plan of Treatment Reminders Order Date Submit Date Provider Last Modified By Organization Details Last Modified Time Details Appointments None recorded. Lab None recorded. Referral dermatologi st referral 2022 023 [facility] 3 [facility], [address], [place], [address], 20:11:22 Procedures None recorded. Surgeries None recorded. Imaging None recorded. Medication Orders benzonatate 100 mg capsule 2022 023 [facility], [address] [place], [address], 20:05:50 Patient TargetsNo targets recorded. Patient Instructions Encounter Date Encounter Id Patient Instructions Last Modified By Organization Details Last Modified Time 04/17/2023 [id number] cough: care instructions [email or web address] Not available 04/17/2023 20:04:53 Reason for Referral Mash Filter Operator Referral for H and wart Referring Physician: Bella Moreno, Urgent Care, Encounter Date: 04/17/2023 Problems Name Problem SNOMED Code Status Onset Date Resolution Date Notes Provider Name and Address Organization Details Recorded Time Hypercholestero lemia 93779424 Active [facility] 19:01:33 Problem Notes [...] Updated DateTime 3 165.1 cm 20 kg/m2 28215.0 8 g 18 /min 8 99 % 99 % 83 /min 97.6 [degF] 152 mm[Hg] 82 mm[Hg] VOLODYMYR DEPINTO PA - [facility] 19:04:33 Social History Question Answer Notes LastModified by Organizat ion Details LastModified Time Tobacco Smoking Status Never Smoker VOLODYMYR YU lisa PA - [facility] 04/17/2023 19:01:48 Have You Had A Flu Shot This Season? Yes Information not available 04/17/2023 If No, Would You Like A Flu Shot Today? A/P Information not available 04/17/2023 Have You Recently Traveled Abroad? No Information not available 04/17/2023 Sex: Unknown Functional Status Question Answer Note LastModified by Organizat ion Details LastModified Time Do you use any illicit or recreational drugs? No Information not available 04/17/2023 Do you or have you ever used any other forms of tobacco or nicotine? No Information not available 04/17/2023 What is your level of alcohol consumption? None Information not available 04/17/2023 Mental Status None recorded. Family History Nothing Reported. Medical History No medical history recorded. Gynecological History Statement/Question Response Date of LMP LMP N/A Obstetrics History GPAL:G 0 P 0 0 0 0 Past Encounters Encounter ID Performer Location Encounter Start Date Encounter Closed Date Diagnosis/Indication Diagnosis SNOMED-CT Code Diagnosis ICD10 Code Diagnosis Note [id number] [address] [place] [address] 03/23/2018 11:50:28 03/23/2018 13:03:05 [id number] [address] [place] [address] 01/08/2022 13:49:42 01/08/2022 16:10:36 [id number] Bella Moreno NP [address] [place] [address] 04/17/2023 18:41:29 04/17/2023 20:11:22 Acute bronchitis 33161189 J20.9 How can you care for yourself [...] You have a new rash. Annalisa macario [id number] B07. 8 Health Concerns Section Related Observation LastModified by Organization Detai ls LastModified Time None Recorded Concern Status LastModified by Organization Details LastModified Time None Recorded Advance Directives Directive None Recorded Payers Insurance Date Sequence Insurance Name Policy Number Policy Gonzalez Covered Member ID Gonzalez Member ID Guarantor Name 04/17/2023 1 [place] B[place] [employer] Tammy [id number] [employer] [place] 06/15/2023 2 [id number] [id number] [employer] [place] Notes Date Note Type Note Provider Name [...] W 1 wk ago, no improvement Bella Moreno NP [address] [place], [id number], [place] - [facility] 04/17/2023 20:09:12 OBGyn Episode No OBEpisode recorded.
--- OUTSIDE RECORDS SUMMARY | 2024-10-22 11:31 | XMS_ITS | Encounter Summary ---
Author Organization [employer] Address 75 [facility] 7t [place] [address] Care Team Providers Care Legal Records Clerk Name Role Phone Darlin Tellez MD Primary Care Provider [phone] Encounter Details Date Type Department Care Team (Latest Contact Info) Description 08/20/2019 Abstract [facility] Dental, Provider, DDS Social History [...] Description 11/19/2024 10:00 AM EDT Office Visit [facility] [address] [place] [address] Melissa Vega documented as of this encounter Visit Diagnoses Not on filedocumented in this encounter Care Teams Legal Records Clerk Relationship Specialty Start Date End Date Darlin Tellez MD [address] [place] [address] PCP - General Family Medicine 01/28/19 documented as of this encounter
--- OUTSIDE RECORDS SUMMARY | 2024-10-22 11:31 | XMS_ITS | Encounter Summary ---
Author Organization [employer] Address 75 [facility] [address] [address] Care Team Providers Care Metal Fabricating Supervisor Name Role Phone Darlin Tellez MD Primary Care Provider [phone] Reason for Referral * Consultation (Urgent) - Closed Specialty Diagnoses / Procedures Referred By Mesha casey Referred To Contact Rheumatology Diagnoses Elevated erythrocyte sedimentation rate Polyarthralgia Darlin Tellez MD [address] [place] [address] Phone: tel: fax: [facility] [address] [place] [address] Phone: tel: fax: Referral ID Status Reason Start Date Expiration Date V isits Requested Visits Authorized [id number] Closed Specialty Services Required 07/20/2024 07/20/2025 1 1 Encounter Details Date Type Department Care Team (Late st Contact Info) Description 07/20/2024 Orders Only [facility] [address] [place], [place] [phone] Darlin Tellez MD [address] [place] [address] Elevated erythrocyte sedimentation rate (Primary Dx); Polyarthralgia; Dizziness; Abdominal discomfort Social History Tobacco Use Types Packs/Day Years [...] Description 11/19/2024 10:00 AM EDT Office Visit [facility]ULT [facility] [address] [place] [address] Melissa Vega Scheduled Referrals Name Type Priority Associated Diagnoses Orde r Schedule Referral to Rheumatology Outpatient Referral Urgent Elevated erythrocyte sedimentation rate Polyarthralgia Expected: 07/20/2024 (Approximate), Expires: 07/20/2025 documented as of this encounter Visit Diagnoses Diagnosis Elevated erythrocyte sedimentation rate- Primary Elevated sedimentation rate Polyarthralgia Pain in joint, multiple sites Dizziness Dizziness and giddiness Abdominal discomfort Abdominal pain, unspecified site documented in this encounter Additional Health Concerns Assessment Noted Time PHQ-9 Depression Total Score: 0 07/15/19 25 9:20 AM EST documented as of this encounter Care Teams Metal Fabricating Supervisor Relationship Specialty Start Date End Date Darlin Tellez MD [address] [place] [address] PCP - General Family Medicine 01/28/19 documented as of this encounter
--- OUTSIDE RECORDS SUMMARY | 2024-10-22 11:31 | XMS_ITS | Encounter Summary ---
Author Organization [employer] Address 75 [facility] 7t [place] [address] Care Team Providers Care Textile Coating Machine Operator Name Role Phone Darlin Tellez MD Primary Care Provider [phone] Reason for Visit * Reason Comments Follow-up RV abdomen / ESR. Encounter Details Date Type Department Care Team (Latest Contact Info) Description 10/22/2024 9:30 AM EDT Office Visit [facility] [address] [place], [place] [phone] Darlin Tellez MD [address] [place], [place] [phone] Dyslipidemia (Primary Dx); Osteopenia, unspecified location; Leukopenia, unspecified type; Elevated erythrocyte sedimentation rate Social History Tobacco [...] Mass Index 21.66 10/22/2024 9:24 AM EDT documented in this encounter Miscellaneous Notes * Assessment & Plan Note - Ynes Hightower [place] - 10/22/2024 10:15 AM EDT Associated Problem(s): Elevated erythrocyte sedimentation rate - ESR 69 in 2023. Repeat ESR 51 on 2024 - evaluated by fixing carpenter on September 2024. Tried prednisone for possible PMR. Prednisone was discontinued due to ineffectiveness. - Pt will try acupuncture and non pharmacological treatments * Assessment & Plan Note - Ynes Hightower [place] - 10/22/2024 8:50 AM EDTAssociated Problem(s): Osteopenia - most recent DEXA on 04/12/23 The lowest T-score -2.3 - patient took bisphosphonate 70 mg weekly from Apr 2023 to Mar 2024, patient self-discontinued dueto pain - continue weight-bearing exercise - maintain adequate Calcium and vitamin D intake - fall precaution - recheck DEXA in 2-3 years * Assessment & Plan Note - Ynes Hightower [place] - 10/22/2024 8:50 AM EDTAssociated Problem(s): Dyslipidemia - lipid profile 07/15/24 total cholesterol 231; triglyceride 93; HDL 58; LDL 155 - continue working on lifestyle modification - currently prescribed atorvastatin 10 mg at bedtime, patient discontinued due to pain in 2023, butresumed documented in this encounter Plan of Treatment Upcoming Encounters Date Type Department Care Team (Late st Contact Info) Description 11/19/2024 10:00 AM EDT Office Visit [facility] ADULT [facility] [address] [place] [address] Melissa Vega Scheduled Orders Name Type Priority Associated Diagnoses Orde r Schedule Lipid Panel with Reflex to Direct LDL Lab Routine Dyslipidemia Ordered: 10/22/2024 CBC auto differential Lab Routine Leukopenia, unspecified type Expected: 10/22/2024 (Approximate), Expires: 10/22/2025 Hepatic Function Panel Lab Routine Dyslipidemia Expected: 10/22/2024 (Approximate), Expires: 10/22/2025 documented as of this encounter Visit Diagnoses Diagnosis Dyslipidemia- Primary Other and unspecified hyperlipidemia Osteopenia, unspecified location Leukopenia, unspecified type Elevated erythrocyte sedimentation rate Elevated sedimentation rate documented in this encounter Additional Health Concerns Assessment Noted Time PHQ-9 Depression Total Score: 0 07/15/19 25 9:20 AM EST documented as of this encounter Care Teams Textile Coating Machine Operator Relationship Specialty Start Date End Date Darlin Tellez MD [address] [place] [address] PCP - General Family Medicine 01/28/19 documented as of this encounter
--- OUTSIDE RECORDS SUMMARY | 2024-10-22 11:31 | XMS_ITS | Encounter Summary ---
Author Organization [employer] Address 75 [facility] 7t [place] [address] Care Team Providers Care Machine Silk Screen Printer Name Role Phone Darlin Tellez MD Primary Care Provider [phone] Reason for Visit * Reason Onset Date Comments CHART PREP 10/21/2024 Encounter Details Date Type Department Care Team ([facility] st Contact Info) Description 10/21/2024 Telephone [facility] [address] [place], [place] [phone] Darlin Tellez MD [address] [place], [place] [phone] CHART PREP Social History Tobacco Use Types Packs/Day Years [...] encounter Miscellaneous Notes * Telephone Encounter - Radames Thao [place] - 10/21/2024 1:58 PM EDT Chart Prep Labs: done from 07/15/24 Images: not done chest x-ray 07/20/24 Referrals: complete Rheuma appt kept 10/21/24 notes requested. Vaccines due: RSV and Zoster Screenings: not applicable Overdue care gaps: SBIRT documented in this encounter Plan of Treatment Upcoming Encounters Date Type Department Care Team (Late st Contact Info) Description 11/19/2024 10:00 AM EDT Office Visit [facility] ADULT DENTAL [address] [place] [address] Melissa Vega documented as of this encounter Visit Diagnoses Not on filedocumented in this encounter Additional Health Concerns Assessment Noted Time PHQ-9 Depression Total Score: 0 07/15/19 9:20 AM EST documented as of this encounter Care Teams Machine Silk Screen Printer Relationship Specialty Start Date End Date Darlin Tellez MD [address] [place] [address] PCP - General Family Medicine 01/28/19 documented as of this encounter
--- OUTSIDE RECORDS SUMMARY | 2024-10-22 11:31 | XMS_ITS | Encounter Summary ---
Author Organization [employer] Address [address] [facility] [address] [place] [address] Care Team Providers Care Appellate Court Judge Name Role Phone Darlin Tellez MD Primary Care Provider [phone] Encounter Details Date Type Department Care Team (Late st Contact Info) Description 04/17/2023 Orders Only [facility] [address] [place], [place] [phone] Darlin Tellez MD [address] [place], [place] [phone] Social History Tobacco Use Types Packs/Day Years [...] Description 11/19/2024 10:00 AM EDT Office Visit [facility] ADULT DENTAL [address] [place] [address] Melissa Vega documented as of this encounter Visit Diagnoses Not on filedocumented in this encounter Additional Health Concerns Assessment Noted Time PHQ-9 Depression Total Score: 0 01/03/20 23 9:26 AM EDT documented as of this encounter Care Teams Appellate Court Judge Relationship Specialty Start Date End Date Darlin Tellez MD [address] [place] [address] PCP - General Family Medicine 01/28/19 documented as of this encounter
--- OUTSIDE RECORDS SUMMARY | 2024-10-22 11:31 | XMS_ITS | Encounter Summary ---
Author Organization [employer] Address 75 [facility] 7t [place] [address] Care Team Providers Care Day Light Relief Operator Name Role Phone Darlin Tellez MD Primary Care Provider [phone] Encounter Details Date Type Department Care Team (Late st Contact Info) Description 11/22/2022 Orders Only [facility] [address] [place] [address] Ynes Delgadillo LPN Social History Tobacco Use [...] Description 11/19/2024 10:00 AM EDT Office Visit [facility] ADULT D[facility] [address] [place] [address] Melissa Vega documented as of this encounter Visit Diagnoses Not on filedocumented in this encounter Care Teams Day Light Relief Operator Relationship Specialty Start Date End Date Darlin Tellez MD [address] [place], [place] [phone] PCP - General Family Medicine 01/28/19 documented as of this encounter
--- OUTSIDE RECORDS SUMMARY | 2024-10-22 11:31 | XMS_ITS | Encounter Summary ---
Author Organization [employer] Address [address] [facility] [address] [place] [address] Care Team Providers Care Wastewater Project Manager Name Role Phone Darlin Tellez MD Primary Care Provider [phone] Reason for Visit * Reason Onset Date Comments Nurse Triage 04/17/2023 Encounter Details Date Type Department Care Team ([facility] st Contact Info) Description 04/17/2023 Telephone [facility] MEDICINE [address] [place], [place] [phone] Darlin Tellez MD [address] [place], [place] [phone] Nurse Triage Social History Tobacco Use Types Packs/Day Years Used Date Smoking Tobacco: Never Passive Smoke Exposure: Never Smokeless Tobacco: Never Depression Answer Date Recorded Patient Health Questionnaire-9 Score 0 01/02/2023 Housing Stability Answer Date Recorded What is your housing situation today? I have krissyclaudia sehr 04/02/[address] you li [...] t he electric, gas, oil or water [employer] threatened to shut off services in your [...] Description 11/19/2024 10:00 AM EDT Office Visit [facility] ADULT DENTAL [address] [place] [address] Melissa Vega documented as of this encounter Visit Diagnoses Not on filedocumented in this encounter Additional Health Concerns Assessment Noted Time PHQ-9 Depression Total Score: 0 01/03/20 23 9:26 AM EDT documented as of this encounter Care Teams Wastewater Project Manager Relationship Specialty Start Date End Date Darlin Tellez MD [address] [place] [address] PCP - General Family Medicine 01/28/19 documented as of this encounter
--- OUTSIDE RECORDS SUMMARY | 2024-10-22 11:31 | XMS_ITS | Encounter Summary ---
Author Organization [employer] Address [address] [facility] [address] [place] [address] Care Team Providers Care Cement Loader Name Role Phone Darlin Tellez MD Primary Care Provider Reason for Visit * Reason Onset Date Comments Appointment Request 01/23/2024 Encounter Details Date Type Department Care Team ([facility] st Contact Info) Description 01/23/2024 Telephone [facility] MEDICINE [address] [place], [place] [phone] Darlin Tellez MD [address] [place], [place] [phone] Appointment Request Social History Tobacco Use Types [...] t he electric, gas, oil or water [employer] threatened to shut off services in your [...] AM EDT Office Visit [facility] ADULT DENTAL [address] [place] [address] Melissa Vega documented as of this encounter Visit Diagnoses Not on filedocumented in this encounter Additional Health Concerns Assessment Noted Time PHQ-9 Depression Total Score: 0 01/03/20 23 9:26 AM EDT documented as of this encounter Care Teams Cement Loader Relationship Specialty Start Date End Date Darlin Tellez MD [address] [place] [address] PCP - General Family Medicine 01/28/19 documented as of this encounter
--- OUTSIDE RECORDS SUMMARY | 2024-10-22 11:31 | XMS_ITS | Encounter Summary ---
Author Organization [employer] Address [address] [facility] [address] [place] [address] Care Team Providers Care Final Installer Inspector Name Role Phone Darlin Tellez MD Primary Care Provider [phone] Encounter Details Date Type Department Care Team (Latest Contact Info) Description 10/22/2024 Travel Social History Tobacco Use Types Packs/Day [...] Description 11/19/2024 10:00 AM EDT Office Visit [facility] ADULT DENTAL [address] [place] [address] Melissa Vega documented as of this encounter Visit Diagnoses Not on filedocumented in this encounter Additional Health Concerns Assessment Noted Time PHQ-9 Depression Total Score: 0 07/15/19 25 9:20 AM EST documented as of this encounter Care Teams Final Installer Inspector Relationship Specialty Start Date End Date Darlin Tellez MD [address] [place] [address] PCP - General Family Medicine 01/28/19 documented as of this encounter
--- OUTSIDE RECORDS SUMMARY | 2024-10-22 11:31 | XMS_ITS | Encounter Summary ---
Author Organization [employer] Address [address] [facility] [address] [place] [address] Care Team Providers Care Bill Board Poster Name Role Phone Darlin Tellez MD Primary Care Provider [phone] Encounter Details Date Type Department Care Team (Latest Contact Info) Description 07/16/2018 Abstract [facility] CONVERSIONS Dental, Provider, DDS Social History Tobacco [...] Description 11/19/2024 10:00 AM EDT Office Visit [facility] ADULT DENTAL [address] [place] [address] Melissa Vega documented as of this encounter Visit Diagnoses Not on filedocumented in this encounter Care Teams Bill Board Poster Relationship Specialty Start Date End Date Darlin Tellez MD [address] [place] [address] PCP - General Family Medicine 01/28/19 documented as of this encounter
--- OUTSIDE RECORDS SUMMARY | 2024-10-22 11:31 | XMS_ITS | Encounter Summary ---
Author Organization [employer] Address [address] [facility] [address] [place] [address] Care Team Providers Care Machined Parts Quality Inspector Name Role Phone Darlin Tellez MD Primary Care Provider Encounter Details Date Type Department Care Team (Latest Contact Info) Description 09/01/2021 Abstract [facility] CONVERSIONS Dental, Provider, DDS Social History [...] [facility] ADULT DENTAL [address] [place] [address] Melissa Vega documented as of this encounter Visit Diagnoses Not on filedocumented in this encounter Care Teams Machined Parts Quality Inspector Relationship Specialty Start Date End Date Darlin Tellez MD [address] [place] [address] PCP - General Family Medicine 01/28/19 documented as of this encounter
[2024-10-22 13:34] LABS: MANUAL DIFF FLAG NO
[2024-10-22 13:43] LABS: Basophils Absolute Auto 0.1 X10*3/uL (0.0-0.2); Basophils Percent Auto 1.1 % (0-2); Eosinophils Absolute Auto 0.2 X10*3/uL (0.0-0.4); Eosinophils Percent Auto 3.8 % (0-4); Hematocrit 39.1 % (37.0-47.0); Hemoglobin 12.3 g/dl (12.0-16.0); Imm Gran Abs Auto 0.01 X10*3/uL (0.00-0.03); Imm Gran Pct Auto 0.2 % (0.0-0.4); Lymphocytes Absolute Auto 1.4 X10*3/uL (1.2-4.9); Lymphocytes Percent Auto 29.4 % (20-40); Mean Corpuscular HGB Conc 31.5 g/dl (31.0-35.0); Mean Corpuscular Volume 92.2 fL (80.0-98.0); Mean Platelet Volume 11.2 fL (9.4-12.3); Monocytes Absolute Auto 0.3 X10*3/uL (0.1-1.2); Monocytes Percent Auto 7.2 % (2-11); Neutrophils Absolute Auto 2.8 x10*3/uL (2.0-8.3); Neutrophils Percent Auto 58.3 % (45-73); Platelet Count 233 X10*3/uL (160-400); Red Blood Count 4.24 X10*6/uL (4.20-5.50); Red Cell Distribution Width 13.6 % (11.0-16.0); White Blood Count 4.7 X10*3/uL (4.8-10.8)
[2024-10-22 13:55] LABS: Alanine Aminotransferase 20 U/L (0-31); Albumin Level 4.3 g/dL (3.5-5.0); Alkaline Phosphatase 83 U/L (39-117); Aspartate Amino Transferase 32 U/L (5-31); Bilirubin Direct 0.2 mg/dL (0.0-0.5); Bilirubin Total 0.4 mg/dL (0.0-1.0); Cholesterol 193 mg/dL (<200); HDL Cholesterol 63 mg/dL (>40); LDL Cholesterol Calculated 112 mg/dL (<100); Total Protein 7.5 g/dL (6.5-8.0); Triglycerides 94 mg/dL (<150)
[2024-10-22 14:22] LABS: Reflex LDLD? No
== END 2024-10-22 10:31 | disposition home or self-care (01) ==
LOC: HO.HHCL 10:30
PROVIDERS: Visit Provider Family Medicine
DX: E78.5 Hyperlipidemia, unspecified (principal); D72.819 Decreased white blood cell count, unspecified
CPT/HCPCS: 36415; 80061; 80076; 85025